=== PATIENT | female | born 1985 | race Caucasian/White ===

== ENCOUNTER 2016-07-22 12:35 | Inpatient (IN) | payer OTHER ==
[2016-07-22 17:18] VITALS: BMI 22.4
--- NOTE | 2016-07-22 18:57 | HP ---
COWS - Scale Resting Pulse: 1= [place] 81-100 Sweatin= Chills/Flushing Restless Observation: 3= Extraneous Movement Pupil Size: 0= Normal to Room Light Bone or Joint Aches: 2= Severe Diffuse Aches Runny Nose/ Eye Tearin= Runny Nose/Eyes GI Upset > 30mins: 3= Vomiting/Diarrhea Tremor Observation: 2= Slight Tremor Visible Yawning Observation: 0= None Anxiety or Irritability: 2=Irritable/Anxious Goose Flesh Skin: 0=Smooth Skin COWS Score: [address] [facility] Chief Complaint: withdrawal sx Allergies/Adverse Reactions: Allergies Allergy/AdvReac Type Severity Reaction Status Date / Time No Known Allergies Allergy Verified 07/25/16 21:51 History of Present Illness: 30 years old female with long history of opioid nicotine dependence, seizure since age 9 and depression is admitted to detox Exam Limitations: No Limitations - Ebola screening Have you traveled outside of the country in the last 21 days: No Have you had contact with anyone from an Ebola affected area: No Have you been sick,other than usual withdrawal symptoms: No Do you have a fever: No - Review of Systems Constitutional: Chills, Loss of Appetite, Changes in sleep, Unintentional Wgt. Loss, Unexplained wgt Loss EENT: reports: No Symptoms Reported Respiratory: reports: No Symptoms reported Cardiac: reports: No Symptoms Reported GI: reports: Nausea, Poor Appetite, Poor Fluid Intake, Vomiting, Indigestion, Abdominal cramping : reports: No Symptoms Reported Musculoskeletal: reports: Back Pain, Joint Pain, Muscle Pain, Neck Pain Integumentary: reports: Change in Color (neck) Neuro: reports: Seizure (since age 9), Tremors Endocrine: reports: No Symptoms Reported Hematology: reports: No Symptoms Reported Psychiatric: reports: Judgement Intact, Orientated x3, Anxious, Depressed Other Systems: Reviewed and Negative Patient History - Patient Medical History Hx Anemia: No Hx Asthma: No Hx Chronic Obstructive Pulmonary Disease (COPD): No Hx Cancer: No Hx Cardiac Disorders: No Hx Congestive Heart Failure: No Hx Hypertension: No Hx Hypercholesterolemia: No Hx Pacemaker: No HX Cerebrovascular Accident: No Hx Seizures: Yes (last seizure 04/2016) Hx Dementia: No Hx Diabetes: No Hx Gastrointestinal Disorders: Yes Hx Liver Disease: No Hx Genitourinary Disorders: No Hx Sexually Transmitted Disorders: No Hx Renal Disease (ESRD): No Hx Thyroid Disease: No Hx Human Immunodeficiency Virus (HIV): No Hx Hepatitis C: No Hx Depression: Yes Hx Suicide Attempt: No Hx Bipolar Disorder: No Hx Schizophrenia: No - Patient Surgical History Past Surgical History: Yes Hx Neurologic Surgery: No Hx Cataract Extraction: No Hx Cardiac Surgery: No Hx Lung Surgery: No Hx Breast Surgery: No Hx Breast Biopsy: No Hx Abdominal Surgery: No Hx Appendectomy: No Hx Cholecystectomy: No Hx Genitourinary Surgery: No Hx Section: Yes (2014) Hx Orthopedic Surgery: No Anesthesia Reaction: No - PPD History Previous Implant?: Yes Documented Results: Negative w/o proof Implanted On Prior R Admission?: No PPD to be Administered?: Yes - Reproductive History Patient is a Female of Child Bearing Age (11 -55 yrs old): Yes Last Menstrual Period: 06/22/16 Patient : No - Smoking Cessation Smoking history: Current every day smoker Have you smoked in the past 12 months: No Aproximately how many cigarettes per day: 10 Cigars Per Day: 0 Hx Chewing Tobacco Use: No Initiated information on smoking cessation: Yes 'Breaking Loose' booklet given: 07/22/16 - Substance & Tx. History Hx Alcohol Use: No Hx Substance Use: Yes Substance Use Type: Opiates Hx Substance Use Treatment: Yes - Substances Abused Heroin Route: Injection Frequency: Daily Amount used: 20 BAGS Age of first use: 29 Date of Last Use: 07/22/16 Family Disease History - Family Disease History Family Disease History: Diabetes: Grandparent, Heart Disease: Mother Admission Physical Exam BHS - Vital Signs Vital Signs: Vital Signs - 24 hr 07/22/16 17:16 Temperature 98.2 F Pulse Rate 85 Respiratory 18 Rate Blood Pressure 111/62 - Physical General Appearance: Yes: Appropriately Dressed, Mild Distress, Thin, Tremorous, Irritable, Sweating, Anxious HEENTM: Yes: Hearing grossly Normal, Normal ENT Inspection, Normocephalic, Normal Voice Respiratory: Yes: Chest Non-Tender, Lungs Clear, Normal Breath Sounds, No Respiratory Distress, No Accessory Muscle Use Neck: Yes: Supple, Trachea in good position Breast: Yes: Breasts Symetrical Cardiology: Yes: Regular Rhythm, Regular Rate, S1, S2 Abdominal: Yes: Non Tender, Soft Genitourinary: Yes: Within Normal Limits Back: Yes: Normal Inspection Musculoskeletal: Yes: full range of Motion, Gait Steady Extremities: Yes: Normal Range of Motion, Non-Tender, Tremors Neurological: Yes: Fully Oriented, Alert, Motor Strength 5/5, Normal Response, Depressed Affect Integumentary: Yes: Warm, Track Duffy Lymphatic: Yes: Within Normal Limits - Diagnostic (1) Opioid dependence with withdrawal Current Visit: Yes Status: Acute (2) Nicotine dependence Current Visit: Yes Status: Acute Qualifiers: Nicotine product type: cigarettes Substance use status: in withdrawal Qualified Code(s): F17.213 - Nicotine dependence, cigarettes, with withdrawal (3) Seizure Current Visit: Yes Status: Chronic Comment: treated with tegretal and keppra last dose 05/2016 last seizure 04/2016 (4) GERD (gastroesophageal reflux disease) Current Visit: Yes Status: Chronic Qualifiers: Esophagitis presence: without esophagitis Qualified Code(s): K21.9 - Gastro-esophageal reflux disease without esophagitis (5) Depression (emotion) Current Visit: Yes Status: Suspected Qualifiers: Depression Type: dysthymia Qualified Code(s): F34.1 - Dysthymic disorder Cleared for Admission [facility] - Detox or Rehab [facility] Level of Care: Medically Managed Detox Regimen/Protocol: Methadone [facility] Breath Alcohol Content Breath Alcohol Content: 0 Urine Pregancy Test - Result Urine Test Results: Negative- NO Line Present Urine Drug Screen - Results Drug Screen Negative: No Urine Drug Screen Results: OPI-Opiates
[2016-07-22] MEDS ORDERED: MAGNESIUM CITRATE 300 ML BOTTLE PO PRN (18:59)
[2016-07-22] MEDS ORDERED: ACETAMINOPHEN 325 MG TABLET (FP) PO PRN (18:59)
[2016-07-22] MEDS ORDERED: guaiFENesin/D-METHORPHAN HB 10 ML UNIT-DOSE CUPS PO PRN (18:59)
[2016-07-22] MEDS ORDERED: LOPERAMIDE HCL 2 MG CAPSULE PO PRN (18:59)
[2016-07-22] MEDS ORDERED: METHADONE HCL 10 MG TABLET (FOR DETOX USE ONLY) PO ONE ×2 (18:59→23:00)
[2016-07-22] MEDS ORDERED: MAGNESIUM HYDROX 2400MG/30ML ORAL SUSPENSION 30 ML CUP PO PRN (18:59)
[2016-07-22] MEDS ORDERED: MENTHOL/PHENOL 1 EACH UD MM PRN (18:59)
[2016-07-22] MEDS ORDERED: diphenhydrAMINE HCL 50 MG CAPSULE PO PRN (18:59)
[2016-07-22] MEDS ORDERED: NICOTINE POLACRILEX 2 MG GUM BC PRN (18:59)
[2016-07-22] MEDS ORDERED: IBUPROFEN 400 MG TABLET (FP) PO PRN (18:59)
[2016-07-22] MEDS ORDERED: P-EPHED 60MG/TRIPROLIDI 2.5MG TABLET PO PRN (18:59)
[2016-07-22] MEDS: diazePAM 5 MG TABLET PO PRN (20:44)
[2016-07-22] MEDS: MAG HYDROX/AL HYDROX/SIMETH 30 ML UNIT-DOSE CUP PO PRN (20:44)
[2016-07-22] MEDS: carBAMazepine 200 MG TABLET PO SCH (22:19)
[2016-07-22] MEDS: RANITIDINE HCL 150 MG TABLET (FP) PO SCH (22:20)
[2016-07-22] MEDS: levETIRAcetam 500 MG TABLET (FP) PO SCH (22:20)
[2016-07-22] MEDS: THIAMINE HCL 100 MG TABLET (FP) PO SCH (22:21)
[2016-07-22 23:02] LABS: URINE APPEARANCE CLOUDY; URINE BILIRUBIN NEGATIVE (NEGATIVE); URINE BLOOD NEGATIVE (NEGATIVE); URINE COLOR YELLOW; URINE GLUCOSE (UA) NEGATIVE (NEGATIVE); URINE KETONE NEGATIVE (NEGATIVE); URINE NITRITE NEGATIVE (NEGATIVE); URINE PROTEIN NEGATIVE (NEGATIVE); URINE UROBILINOGEN NEGATIVE E.U./dl (0.2-1.0)
[2016-07-22 23:06] LABS: URINE LEUK ESTERASE 1+ (NEGATIVE)
[2016-07-22 23:09] LABS: URINE MUCUS FEW; URINE RBC 1 /hpf (0-3); URINE WBC 9 /hpf (3-5)
[2016-07-23] MEDS: diazePAM 5 MG TABLET PO PRN ×5 (00:42→18:23)
[2016-07-23] MEDS: MAG HYDROX/AL HYDROX/SIMETH 30 ML UNIT-DOSE CUP PO PRN ×2 (06:57→22:04)
[2016-07-23] MEDS ORDERED: METHADONE HCL 10 MG TABLET (FOR DETOX USE ONLY) PO ONE (10:00)
[2016-07-23] MEDS: levETIRAcetam 500 MG TABLET (FP) PO SCH ×2 (10:22→22:04)
[2016-07-23] MEDS: PRENATAL VITAMINS W/ FOLIC ACID TABLET (FP) PO SCH (10:22)
[2016-07-23] MEDS: RANITIDINE HCL 150 MG TABLET (FP) PO SCH ×2 (10:23→22:04)
[2016-07-23] MEDS: NICOTINE 14 MG/24 HOURS TOPICAL PATCH TD SCH (10:23)
[2016-07-23 10:27] LABS: MCH 30.1 pg (25.7-33.7); MCHC 33.4 g/dl (32.0-36.0); MEAN CELL VOLUME 90.2 fl (80-96); MEAN PLT VOLUME 9.3 fl (7.5-11.1); PLATELET COUNT 259 K/MM3 (134-434); RDW 14.6 % (11.6-15.6); WHITE BLOOD COUNT 9.4 K/mm3 (4.0-10.0)
[2016-07-23 10:39] LABS: ANION GAP 9 (8-16); BILIRUBIN,TOTAL 0.6 mg/dL (0.2-1.0); CALCIUM 9.1 mg/dL (8.5-10.1); CO2 32 mmol/L (21-32); GLUCOSE,RANDOM 72 mg/dL (74-106); SGOT/AST 14 U/L (15-37); SGPT/ALT 15 U/L (12-78); TOT PROT 7.3 g/dl (6.4-8.2)
[2016-07-23 10:40] LABS: ALK PHOS 105 U/L (45-117); COCKROFT - GAULT 112.5655; CREATININE 0.7 mg/dL (0.55-1.02)
--- NOTE | 2016-07-23 11:33 | PN ---
[facility] COWS - Scale Resting Pulse: 1= [place] 81-100 Sweatin= Chills/Flushing Restless Observation: 3= Extraneous Movement Pupil Size: 1= Pupils >than Normal Bone or Joint Aches: 2= Severe Diffuse Aches Runny Nose/ Eye Tearin= Runny Nose/Eyes GI Upset > 30mins: 3= Vomiting/Diarrhea Tremor Observation of Outstretched Hands: 2= Slight Tremor Visible Yawning Observation: 1= 1-2x During Session Anxiety or Irritability: 2=Irritable/Anxious Goose Flesh Skin: 0=Smooth Skin COWS Score: 18 S Progress Note (SOAP) Subjective: ALERT,IRRITABLE,ANXIOUS,INTERRUPTED SLEEP,TREMOR,PAIN IN THE BODY AND BACK Objective: 07/23/16 11:46 Vital Signs Temperature 97.9 F 07/23/16 10:26 Pulse Rate 95 H 07/23/16 10:26 Respiratory Rate 18 07/23/16 10:26 Blood Pressure 114/59 07/23/16 10:26 O2 Sat by Pulse Oximetry (%) Laboratory Last Values WBC 9.4 K/mm3 (4.0-10.0) 07/23/16 06:05 RBC 4.11 M/mm3 (3.60-5.2) 07/23/16 06:05 Hgb 12.4 GM/dL (10.7-15.3) 07/23/16 06:05 Hct 37.1 % (32.4-45.2) 07/23/16 06:05 MCV 90.2 fl (80-96) 07/23/16 06:05 MCHC 33.4 g/dl (32.0-36.0) 07/23/16 06:05 RDW 14.6 % (11.6-15.6) 07/23/16 06:05 Plt Count 259 K/MM3 (134-434) 07/23/16 06:05 MPV 9.3 fl (7.5-11.1) 07/23/16 06:05 Sodium 140 mmol/L (136-145) 07/23/16 06:05 Potassium 3.4 mmol/L (3.5-5.1) L 07/23/16 06:05 Chloride 99 mmol/L (98-107) 07/23/16 06:05 Carbon Dioxide 32 mmol/L (21-32) 07/23/16 06:05 Anion Gap 9 (8-16) 07/23/16 06:05 BUN 7 mg/dL (7-18) 07/23/16 06:05 Creatinine 0.7 mg/dL (0.55-1.02) 07/23/16 06:05 Creat Clearance w eGFR > 60 (>60) 07/23/16 06:05 Random Glucose 72 mg/dL (74-106) L 07/23/16 06:05 Calcium 9.1 mg/dL (8.5-10.1) 07/23/16 06:05 Total Bilirubin 0.6 mg/dL (0.2-1.0) 07/23/16 06:05 AST 14 U/L (15-37) L 07/23/16 06:05 ALT 15 U/L (12-78) 07/23/16 06:05 Alkaline Phosphatase 105 U/L (45-117) 07/23/16 06:05 Total Protein 7.3 g/dl (6.4-8.2) 07/23/16 06:05 Albumin 4.0 g/dl (3.4-5.0) 07/23/16 06:05 Urine Color Yellow 07/22/16 20:35 Urine Appearance Cloudy 07/22/16 20:35 Urine pH 7.0 (5.0-8.0) 07/22/16 20:35 Urine Protein Negative (NEGATIVE) 07/22/16 20:35 Urine Glucose (UA) Negative (NEGATIVE) 07/22/16 20:35 Urine Ketones Negative (NEGATIVE) 07/22/16 20:35 Urine Blood Negative (NEGATIVE) 07/22/16 20:35 Urine Nitrite Negative (NEGATIVE) 07/22/16 20:35 Urine Bilirubin Negative (NEGATIVE) 07/22/16 20:35 Urine Urobilinogen Negative E.U./dl (0.2-1.0) 07/22/16 20:35 Ur Leukocyte Esterase 1+ (NEGATIVE) H 07/22/16 20:35 Urine RBC 1 /hpf (0-3) 07/22/16 20:35 Urine WBC 9 /hpf (3-5) 07/22/16 20:35 Ur Epithelial Cells Many /hpf (FEW) 07/22/16 20:35 Amorphous Urates Moderate /hpf (NONE SEEN) 07/22/16 20:35 Urine Mucus Few 07/22/16 20:35 Carbamazepine < 0.5 ug/ml (4.0-12.0) L* 07/23/16 06:05 EKG NSR,NORMAL ECG Assessment: 07/23/16 11:47 WITHDRAWAL SYMPTOM Plan: CONTINUE DETOX,K IS 3.4 HYPOKALEMIA KDUR 20 MEQ PO NOW THE DAILY
[2016-07-23] MEDS: carBAMazepine 200 MG TABLET PO SCH ×2 (12:06→22:04)
[2016-07-23] MEDS ORDERED: POTASSIUM CHLORIDE TABS 20 MEQ TABLET.ER (FP) PO ONE (12:30)
[2016-07-23] MEDS: hydrOXYzine PAMOATE 50 MG CAPSULE (FP) PO PRN (14:28)
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
[2016-07-23] MEDS: THIAMINE HCL 100 MG TABLET (FP) PO SCH (22:04)
[2016-07-23] MEDS: traZODone HCL 50 MG TABLET (FP) PO SCH (22:04)
[2016-07-24] MEDS: diazePAM 5 MG TABLET PO PRN ×5 (04:00→22:09)
[2016-07-24] MEDS: hydrOXYzine PAMOATE 50 MG CAPSULE (FP) PO PRN ×2 (06:00→11:43)
[2016-07-24] MEDS ORDERED: METHADONE HCL 5 MG TABLET (FOR DETOX USE ONLY) PO ONE (10:00)
--- NOTE | 2016-07-24 10:06 | PN ---
S COWS - Scale Resting Pulse: 1= [place] 81-100 Sweatin= Chills/Flushing Restless Observation: 3= Extraneous Movement Pupil Size: 1= Pupils >than Normal Bone or Joint Aches: 2= Severe Diffuse Aches Runny Nose/ Eye Tearin= Runny Nose/Eyes GI Upset > 30mins: 2= Nausea/Diarrhea Tremor Observation of Outstretched Hands: 2= Slight Tremor Visible Yawning Observation: 1= 1-2x During Session Anxiety or Irritability: 2=Irritable/Anxious Goose Flesh Skin: 0=Smooth Skin COWS Score: 17 S Progress Note (SOAP) Subjective: ALERT,IRRITABLE,ANXIOUS,INTERRUPTED SLEEP,PAIN IN THE BODY AND BCAK Objective: 07/24/16 10:05 Vital Signs Temperature 97.1 F L 07/24/16 06:26 Pulse Rate 83 07/24/16 06:26 Respiratory Rate 20 07/24/16 06:26 Blood Pressure 95/60 07/24/16 06:26 O2 Sat by Pulse Oximetry (%) Laboratory Last Values WBC 9.4 K/mm3 (4.0-10.0) 07/23/16 06:05 RBC 4.11 M/mm3 (3.60-5.2) 07/23/16 06:05 Hgb 12.4 GM/dL (10.7-15.3) 07/23/16 06:05 Hct 37.1 % (32.4-45.2) 07/23/16 06:05 MCV 90.2 fl (80-96) 07/23/16 06:05 MCHC 33.4 g/dl (32.0-36.0) 07/23/16 06:05 RDW 14.6 % (11.6-15.6) 07/23/16 06:05 Plt Count 259 K/MM3 (134-434) 07/23/16 06:05 MPV 9.3 fl (7.5-11.1) 07/23/16 06:05 Sodium 140 mmol/L (136-145) 07/23/16 06:05 Potassium 3.4 mmol/L (3.5-5.1) L 07/23/16 06:05 Chloride 99 mmol/L (98-107) 07/23/16 06:05 Carbon Dioxide 32 mmol/L (21-32) 07/23/16 06:05 Anion Gap 9 (8-16) 07/23/16 06:05 BUN 7 mg/dL (7-18) 07/23/16 06:05 Creatinine 0.7 mg/dL (0.55-1.02) 07/23/16 06:05 Creat Clearance w eGFR > 60 (>60) 07/23/16 06:05 Random Glucose 72 mg/dL (74-106) L 07/23/16 06:05 Calcium 9.1 mg/dL (8.5-10.1) 07/23/16 06:05 Total Bilirubin 0.6 mg/dL (0.2-1.0) 07/23/16 06:05 AST 14 U/L (15-37) L 07/23/16 06:05 ALT 15 U/L (12-78) 07/23/16 06:05 Alkaline Phosphatase 105 U/L (45-117) 07/23/16 06:05 Total Protein 7.3 g/dl (6.4-8.2) 07/23/16 06:05 Albumin 4.0 g/dl (3.4-5.0) 07/23/16 06:05 Urine Color Yellow 07/22/16 20:35 Urine Appearance Cloudy 07/22/16 20:35 Urine pH 7.0 (5.0-8.0) 07/22/16 20:35 Ur Specific [place] 1.010 (1.005-1.025) 07/22/16 20:35 Urine Protein Negative (NEGATIVE) 07/22/16 20:35 Urine Glucose (UA) Negative (NEGATIVE) 07/22/16 20:35 Urine Ketones Negative (NEGATIVE) 07/22/16 20:35 Urine Blood Negative (NEGATIVE) 07/22/16 20:35 Urine Nitrite Negative (NEGATIVE) 07/22/16 20:35 Urine Bilirubin Negative (NEGATIVE) 07/22/16 20:35 Urine Urobilinogen Negative E.U./dl (0.2-1.0) 07/22/16 20:35 Ur Leukocyte Esterase 1+ (NEGATIVE) H 07/22/16 20:35 Urine RBC 1 /hpf (0-3) 07/22/16 20:35 Urine WBC 9 /hpf (3-5) 07/22/16 20:35 Ur Epithelial Cells Many /hpf (FEW) 07/22/16 20:35 Amorphous Urates Moderate /hpf (NONE SEEN) 07/22/16 20:35 Urine Mucus Few 07/22/16 20:35 Carbamazepine < 0.5 ug/ml (4.0-12.0) L* 07/23/16 06:05 RPR Titer Nonreactive (NONREACTIVE) 07/23/16 06:05 Assessment: 07/24/16 10:05 CONTINUE DETOX,CONTINUE K DUR
[2016-07-24] MEDS: POTASSIUM CHLORIDE TABS 20 MEQ TABLET.ER (FP) PO SCH (10:14)
[2016-07-24] MEDS: levETIRAcetam 500 MG TABLET (FP) PO SCH ×3 (10:14→22:09)
[2016-07-24] MEDS: PRENATAL VITAMINS W/ FOLIC ACID TABLET (FP) PO SCH (10:14)
[2016-07-24] MEDS: carBAMazepine 200 MG TABLET PO SCH ×3 (10:14→22:10)
[2016-07-24] MEDS: RANITIDINE HCL 150 MG TABLET (FP) PO SCH ×2 (10:14→22:09)
[2016-07-24] MEDS: NICOTINE 14 MG/24 HOURS TOPICAL PATCH TD SCH (10:15)
[2016-07-24] MEDS: CYCLOBENZAPRINE HCL 10 MG TABLET (FP) PO PRN ×2 (11:36→22:10)
[2016-07-24] MEDS: traZODone HCL 50 MG TABLET (FP) PO SCH (22:10)
[2016-07-24] MEDS: THIAMINE HCL 100 MG TABLET (FP) PO SCH (22:12)
[2016-07-24] MEDS: cloNIDine HCL 0.1 MG TABLET PO SCH (23:50)
[2016-07-25] MEDS: diazePAM 5 MG TABLET PO PRN ×3 (05:51→15:25)
[2016-07-25] MEDS ORDERED: METHADONE HCL 5 MG TABLET (FOR DETOX USE ONLY) PO ONE (10:00)
[2016-07-25] MEDS: PRENATAL VITAMINS W/ FOLIC ACID TABLET (FP) PO SCH (10:22)
[2016-07-25] MEDS: cloNIDine HCL 0.1 MG TABLET PO SCH ×2 (10:22→22:35)
[2016-07-25] MEDS: POTASSIUM CHLORIDE TABS 20 MEQ TABLET.ER (FP) PO SCH (10:23)
[2016-07-25] MEDS: carBAMazepine 200 MG TABLET PO SCH ×2 (10:23→22:35)
[2016-07-25] MEDS: RANITIDINE HCL 150 MG TABLET (FP) PO SCH ×2 (10:23→22:35)
[2016-07-25] MEDS: levETIRAcetam 500 MG TABLET (FP) PO SCH ×2 (10:25→22:35)
[2016-07-25] MEDS: NICOTINE 14 MG/24 HOURS TOPICAL PATCH TD SCH (10:28)
--- NOTE | 2016-07-25 10:48 | PN ---
[facility] Progress Note (SOAP) Subjective: sweats chills body aches anxiety Objective: 07/25/16 10:48 Vital Signs Temperature 97.9 F 07/25/16 09:35 Pulse Rate 90 07/25/16 09:35 Respiratory Rate 20 07/25/16 09:35 Blood Pressure 101/66 07/25/16 09:35 O2 Sat by Pulse Oximetry (%) awake/alert ambulating no acute distress Assessment: 07/25/16 10:48 withdrawal sx Plan: continue detox increase fluids psych ordered
--- NOTE | 2016-07-25 13:05 | EKG ---
Test Reason : Blood Pressure : / mmHG Vent. Rate : 080 BPM Atrial Rate : 080 BPM P-R Int : 156 ms QRS Dur : 092 ms QT Int : 380 ms P-R-T Axes : 073 059 068 degrees QTc Int : 438 ms NORMAL SINUS RHYTHM NORMAL ECG NO PREVIOUS ECGS AVAILABLE Confirmed by LANDON OH MD ([id number]) on 07/25/2016 1:05:24 PM Referred By: Confirmed By:LANDON OH MD
[2016-07-25] MEDS: hydrOXYzine PAMOATE 50 MG CAPSULE (FP) PO PRN (17:32)
[2016-07-25] MEDS ORDERED: LORAZEPAM CARPU-JECT 2 MG/ML DISP.SYRIN ONE ×2 (20:20→20:24)
[2016-07-25] MEDS ORDERED: LORAZEPAM CARPU-JECT 2 MG/ML DISP.SYRIN IM ONE (20:50)
--- NOTE | 2016-07-25 20:59 | PN ---
[facility] Progress Note Note: SEIZURE TREATED WITH KEPPRA 1000 MG BID + TEGRETAL 200 MG BID, WITNESSED X 5 WITHIN 10-15 MINUTES, ATIVAN 2 MG IM GIVEN, O2 2L VA NASAL O2SAT 99% PULE 93, AMBULANCE WAS CALLED, INFORMATION PROVIDED TO [facility], MAY RETURN FOR DETOX OR REHAB WHEN MEDICALLY CLEARED
[2016-07-25] MEDS: THIAMINE HCL 100 MG TABLET (FP) PO SCH (22:35)
[2016-07-25] MEDS: traZODone HCL 50 MG TABLET (FP) PO SCH (22:35)
[2016-07-26] MEDS ORDERED: METHADONE HCL 10 MG TABLET (FOR DETOX USE ONLY) PO ONE (10:00)
--- NOTE | 2016-07-26 10:31 | PN ---
S Progress Note (SOAP) Subjective: ALERT,MEDICALLY CLEAR TO RETURN FOR CONTINUE DETOX TREATMENT Objective: 07/26/16 10:29 Vital Signs Temperature 96.4 F L 07/25/16 17:39 Pulse Rate 83 07/25/16 17:39 Respiratory Rate 18 07/25/16 17:39 Blood Pressure 107/62 07/25/16 17:39 O2 Sat by Pulse Oximetry (%) Assessment: 07/26/16 10:30 WITHDRAWAL SYMPTOM Plan: CONTINUE DETOX,SEIZURE PRECAUTION
[2016-07-26] MEDS: cloNIDine HCL 0.1 MG TABLET PO SCH ×2 (10:32→22:28)
[2016-07-26] MEDS: PRENATAL VITAMINS W/ FOLIC ACID TABLET (FP) PO SCH (10:59)
[2016-07-26] MEDS: carBAMazepine 200 MG TABLET PO SCH ×2 (10:59→22:28)
[2016-07-26] MEDS: levETIRAcetam 500 MG TABLET (FP) PO SCH ×2 (10:59→22:28)
[2016-07-26] MEDS: RANITIDINE HCL 150 MG TABLET (FP) PO SCH ×2 (10:59→22:28)
[2016-07-26] MEDS: POTASSIUM CHLORIDE TABS 20 MEQ TABLET.ER (FP) PO SCH (10:59)
[2016-07-26] MEDS: NICOTINE 14 MG/24 HOURS TOPICAL PATCH TD SCH (11:00)
[2016-07-26] MEDS: hydrOXYzine PAMOATE 50 MG CAPSULE (FP) PO PRN (19:06)
[2016-07-26] MEDS ORDERED: QUEtiapine FUMARATE 50 MG TABLET PO ONE (19:30)
[2016-07-26] MEDS: THIAMINE HCL 100 MG TABLET (FP) PO SCH (22:28)
[2016-07-26] MEDS: traZODone HCL 50 MG TABLET (FP) PO SCH (22:28)
[2016-07-27] MEDS ORDERED: METHADONE HCL 5 MG TABLET (FOR DETOX USE ONLY) PO ONE (06:00)
[2016-07-27 06:12] VITALS: BP 97/60; PULSE 76; TEMP 97
--- NOTE | 2016-07-27 08:32 | DS ---
[facility] Detox Discharge Summary Admission Date: 07/22/16 Discharge Date: 07/27/16 - History Present History: Opioid Dependence - Physical Exam Results Vital Signs: Vital Signs Temperature 97 F L 07/27/16 06:12 Pulse Rate 76 07/27/16 06:12 Respiratory Rate 16 07/27/16 06:12 Blood Pressure 97/60 07/27/16 06:12 O2 Sat by Pulse Oximetry (%) - Treatment Hospital Course: Detox Protocol Followed, Detoxed Safely, Responded well, Discharged Condition Good, Rehab Referral Accepted - Medication Discharge Medications: Ambulatory Orders Carbamazepine [Tegretol -] 200 mg PO BID 07/22/16 Levetiracetam [Keppra -] 750 mg PO BID 07/22/16 Trazodone HCl [Desyrel -] 50 mg PO HS #30 tablet 07/23/16 - Diagnosis (1) Insomnia Current Visit: Yes Status: Chronic (2) Nicotine dependence Current Visit: Yes Status: Chronic Qualifiers: Nicotine product type: cigarettes Substance use status: uncomplicated Qualified Code(s): F17.210 - Nicotine dependence, cigarettes, uncomplicated (3) Substance induced mood disorder Current Visit: Yes Status: Acute (4) GERD (gastroesophageal reflux disease) Current Visit: Yes Status: Chronic Qualifiers: Esophagitis presence: without esophagitis Qualified Code(s): K21.9 - Gastro-esophageal reflux disease without esophagitis (5) PTSD (post-traumatic stress disorder) Current Visit: Yes Status: Chronic (6) Depression (emotion) Current Visit: Yes Status: Suspected Qualifiers: Depression Type: dysthymia Qualified Code(s): F34.1 - Dysthymic disorder (7) Opioid dependence with withdrawal Current Visit: Yes Status: Chronic (8) Seizure Current Visit: Yes Status: Chronic - AMA Did Patient Leave Against Medical Advice: No
[2016-07-27] MEDS ORDERED: HALOPERIDOL 1 MG TABLET (FP) PO PRN (08:54)
[2016-07-27] MEDS ORDERED: CYCLOBENZAPRINE HCL 10 MG TABLET (FP) PO PRN (08:59)
--- NOTE | 2016-07-27 09:01 | PN ---
Psychiatric Progress Note Vital Signs: Vital Signs Period Temp Pulse Resp BP Sys/Kurtz Pulse Ox Last 24 Hr 97 F-98.6 F 76-119 16-20 95-109/60-71 Date of Session: 07/27/16 Chief Complaint:: Aniety and agitations HPI: Patient reprot anxietyt, agitations after Valium has been ntapers by protocol, reports taking xanax and Klonopin priorm to admission for anxiety. Patient reports need in benzodoazepins for anxiety. Haldol 1mg po prn a4 recomended Current Medications: Active Medications Generic Name Dose Route Start Last Admin Trade Name Freq PRN Reason Stop Dose Admin Acetaminophen 650 mg 07/22/16 18:59 Tylenol - PO Q4H PRN FEVER OR PAIN Al Hydroxide/Mg Hydroxide 30 ml 07/22/16 18:59 07/23/16 22:04 Mylanta Oral Suspension - PO 30 ml Q6H PRN Administration DYSPEPSIA Carbamazepine 200 mg 07/22/16 22:00 07/26/16 22:28 Tegretol - PO 200 mg BID ELIZABETH Administration Clonidine 0.1 mg 07/24/16 22:00 07/26/16 22:28 Catapres - PO 0.1 mg BID ELIZABETH Administration Cyclobenzaprine HCl 10 mg 07/24/16 10:02 07/24/16 22:10 Flexeril - PO 10 mg TID PRN Administration MUSCLE SPASMS Diphenhydramine HCl 50 mg 07/22/16 18:59 07/23/16 00:42 Benadryl - PO 50 mg HSMR1 PRN Administration INSOMNIA Eucalyptus/Menthol/Phenol/Sorbitol 1 each 07/22/16 18:59 Cepastat Lozenge - MM Q4H PRN SORE THROAT Guaifenesin 10 ml 07/22/16 18:59 Robitussin Dm - PO Q6H PRN COUGH Hydroxyzine Pamoate 50 mg 07/23/16 12:39 07/26/16 19:06 Vistaril - PO 50 mg Q6H PRN Administration ANXIETY Levetiracetam 1,000 mg 07/22/16 22:00 07/26/16 22:28 Keppra - PO 1,000 mg BID ELIZABETH Administration Loperamide HCl 4 mg 07/22/16 18:59 Imodium - PO Q6H PRN DIARRHEA Magnesium Citrate 300 ml 07/22/16 18:59 Citroma - PO Q48H PRN CONSTIPATION Magnesium Hydroxide 30 ml 07/22/16 18:59 Milk Of Magnesia - PO DAILY PRN CONSTIPATION Nicotine 14 mg 07/23/16 10:00 07/26/16 11:00 Nicoderm Patch - TD Not Given DAILY ELIZABETH Nicotine Polacrilex 2 mg 07/22/16 18:59 Nicorette Gum - BC Q2H PRN NICOTINE REPLACEMENT RX Potassium Chloride 20 meq 07/24/16 10:00 07/26/16 10:59 K-Dur - PO 20 meq DAILY ELIZABETH Administration Multivit/Folic Acid/Iron 1 tab 07/23/16 10:00 07/26/16 10:59 Vitamins (Sjr) - PO 1 tab DAILY ELIZABETH Administration Pseudoephedrine/Triprolidine 1 combo 07/22/16 18:59 Actifed - PO TID PRN NASAL CONGESTION Ranitidine HCl 150 mg 07/22/16 22:00 07/26/16 22:28 Zantac - PO 150 mg BID ELIZABETH Administration Thiamine HCl 100 mg 07/22/16 22:00 07/26/16 22:28 Vitamin B1 - PO 100 mg HS ELIZABETH Administration Trazodone HCl 50 mg 07/23/16 22:00 07/26/16 22:28 Desyrel - PO 50 mg HS ELIZABETH Administration Medication(s) Change(s): Haldol 1mg po prn q4 for agitation Mental Status Exam - Mental Status Exam Alert and Oriented to: Person Cognitive Function: Fair Patient Appearance: Unkempt Mood: Nervous, Anxious Affect: Labile Patient Behavior: Cooperative Speech Pattern: Excessive Voice Loudness: Mildly Loud Thought Process: Goal Oriented Thought Disorder: Being Controlled Hallucinations: Denies Suicidal Ideation: Denies Homicidal Ideation: Denies Insight/Judgement: Fair Sleep: Difficulty falling asleep Appetite: Weight loss Muscle strength/Tone: Normal Gait/Station: Normal Additional Comments: Haldol 1mg po prn q4 for agitation Psychiatric Treatment Plan - Problem List (1) Substance induced mood disorder Current Visit: Yes (2) Nicotine dependence Current Visit: Yes Qualifiers: Nicotine product type: cigarettes Substance use status: uncomplicated Qualified Code(s): F17.210 - Nicotine dependence, cigarettes, uncomplicated (3) Opioid dependence with withdrawal Current Visit: Yes (4) PTSD (post-traumatic stress disorder) Current Visit: Yes Comment: Self-report. (5) Depression (emotion) Current Visit: Yes Qualifiers: Depression Type: dysthymia Qualified Code(s): F34.1 - Dysthymic disorder (6) Benzodiazepine abuse Current Visit: Yes (7) Drug-induced mood disorder Current Visit: Yes Initial treatment plan: Haldol 1mg po prn q4 for agitation
[2016-07-27] MEDS: levETIRAcetam 500 MG TABLET (FP) PO SCH (10:32)
[2016-07-27] MEDS: PRENATAL VITAMINS W/ FOLIC ACID TABLET (FP) PO SCH (10:32)
[2016-07-27] MEDS: POTASSIUM CHLORIDE TABS 20 MEQ TABLET.ER (FP) PO SCH (10:33)
[2016-07-27] MEDS: RANITIDINE HCL 150 MG TABLET (FP) PO SCH (10:33)
[2016-07-27] MEDS: carBAMazepine 200 MG TABLET PO SCH (10:33)
[2016-07-27] MEDS: NICOTINE 14 MG/24 HOURS TOPICAL PATCH TD SCH (10:33)
[2016-07-27] MEDS: cloNIDine HCL 0.1 MG TABLET PO SCH (10:33)
[2016-07-27] MEDS: hydrOXYzine PAMOATE 50 MG CAPSULE (FP) PO PRN (10:35)
== END 2016-07-27 12:05 | disposition other institution (70) | DRG 773 ==
LOC: YASAS 12:35 → Y6N 17:47
PROVIDERS: ADMIT Internal Medicine Addiction Medicine; ATTEND Internal Medicine Addiction Medicine
PROC: HZ2ZZZZ Detoxification Services for Substance Abuse Treatment (ICD-10-PCS; principal; 2016-07-27)
DX: F11.23 Opioid dependence with withdrawal (principal); F17.210 Nicotine dependence, cigarettes, uncomplicated; F13.10 Sedative, hypnotic or anxiolytic abuse, uncomplicated; F19.24 Other psychoactive substance dependence with psychoactive substance-induced mood disorder; F34.1 Dysthymic disorder; F43.10 Post-traumatic stress disorder, unspecified; G40.909 Epilepsy, unspecified, not intractable, without status epilepticus; K21.9 Gastro-esophageal reflux disease without esophagitis
CPT/HCPCS: 36415; 80053; 80156; 81003; 81015; 85027; 86593; 93005; 93010

== ENCOUNTER 2016-07-25 21:11 | Emergency (ER) | payer OTHER ==
--- NOTE | 2016-07-25 21:13 | PDOC ---
History of Present Illness - General History Source: EMS, Primary Care Provider Exam Limitations: Clinical Condition - History of Present Illness Initial Comments: 07/25/16 21:58 The patient is a 30 year old female with significant past medical history of opioid nicotine dependence and seizure disorder who presents to the ED BIBA from [facility] for multiple witnessed seizure episodes prior to arrival. As per detox center, patient had 5 seizure episodes within 10-15 minutes and was treated with keppra 1000 mg BID + tegretol 200 mg BID and 2 of ativan. EMS was contacted. As per EMS, patient had another seizure and was given versed 5mg IM and then versed 5mg IV. EMS also reports patients keppra levels were low. Patient currently presents postictal and maintaining airway Allergies: NKDA Social History: No alcohol, tobacco, or drug use reported. Past Surgical History: PCP: None reported <Audra Lawson - Last Filed: 07/26/16 06:36> - General History Source: EMS <Trevor Pollack - Last Filed: 07/26/16 06:56> - General Stated Complaint: SEIZURE Time Seen by Provider: 07/25/16 21:13 Past History <uAdra Lawson - Last Filed: 07/26/16 06:36> - Past Medical History Anemia: No Asthma: No Cancer: No Cardiac Disorders: No CVA: No COPD: No CHF: No Dementia: No Diabetes: No GI Disorders: Yes Disorders: No HTN: No Hypercholesterolemia: No Kidney Stones: No Liver Disease: No Suicide Attempt (Hx): No Seizures: Yes (last seizure 04/2016) Thyroid Disease: No - Surgical History Abdominal Surgery: No Appendectomy: No Cardiac Surgery: No Cholecystectomy: No Lung Surgery: No Neurologic Surgery: No Orthopedic Surgery: No - Psycho/Social/Smoking Cessation Hx Anxiety: Yes Suicidal Ideation: No Smoking History: Current every day smoker Have you smoked in the past 12 months: No Number of Cigarettes Smoked Daily: 10 Cigars Per Day: 0 'Breaking Loose' booklet given: 07/22/16 Hx Alcohol Use: No Drug/Substance Use Hx: Yes Substance Use Type: Opiates Hx Substance Use Treatment: Yes <Trevor Pollack - Last Filed: 07/26/16 06:56> - Past Medical History Allergies/Adverse Reactions: Allergies Allergy/AdvReac Type Severity Reaction Status Date / Time No Known Allergies Allergy Verified 07/25/16 21:51 Home Medications: Ambulatory Orders Carbamazepine [Tegretol -] 200 mg PO BID 07/22/16 Levetiracetam [Keppra -] 750 mg PO BID 07/22/16 Trazodone HCl [Desyrel -] 50 mg PO HS #30 tablet 07/23/16 Review of Systems - Review of Systems Able to Perform ROS?: No Comments:: 07/25/16 21:58 Unable to obtain due to patients clinical condition. <Audra Lawson - Last Filed: 07/26/16 06:36> *Physical Exam - Vital Signs Last Vital Signs Temp Pulse Resp BP Pulse Ox 98.1 F 92 H 14 96/58 100 07/25/16 21:52 07/25/16 21:52 07/25/16 21:52 07/25/16 21:52 07/25/16 21:52 - Physical Exam Comments: 07/25/16 21:58 GENERAL: Well developed, well nourished. Somnolent. Postictal. No acute distress. HEENT: Normocephalic, atraumatic. No racoon or pardo signs. PERRLA, EOMI. No conjunctival pallor. Sclera are non-icteric. Moist mucous membranes. Oropharynx is clear. No tongue lesions. NECK: Supple. Full ROM. No JVD. Carotid pulses 2+ and symmetric, without bruits. No thyromegaly. No lymphadenopathy. CARDIOVASCULAR: Slight tachycardia. Regular rhythm. No murmurs, rubs, or gallops. Distal pulses are 2+ and symmetric. PULMONARY: No evidence of respiratory distress. Lungs clear to auscultation bilaterally. No wheezing, rales or rhonchi. ABDOMINAL: Soft. Non-distended. No rebound or guarding. No organomegaly. Normoactive bowel sounds. MUSCULOSKELETAL No bony deformities. EXTREMITIES: No cyanosis. No clubbing. No edema. SKIN: Warm and dry. Normal capillary refill. No rashes. No jaundice. NEUROLOGICAL: Patient is somnolent and postictal. <Audra Lawson - Last Filed: 07/26/16 06:36> ED Treatment Course - LABORATORY CBC & Chemistry Diagram: 07/25/16 22:12 07/25/16 22:12 - RADIOLOGY Radiograph Interpretation: 07/26/16 06:36 EXAM: CT brain without contrast Reviewed by Imaging solutions engineer: FINDINGS: Normal brain. No acute intracranial abnormality. No hemorrhage. No visible infarct or mass. Osseous structures are intact. <Audra Lawson - Last Filed: 07/26/16 06:36> - LABORATORY CBC & Chemistry Diagram: 07/25/16 22:12 07/25/16 22:12 <Trevor Pollack - Last Filed: 07/26/16 06:56> Medical Decision Making - Medical Decision Making 07/26/16 06:55 Dr. Pollack: The scribe's documentation has been prepared under my direction and personally reviewed by me in its entirery. I confirm that the note above accurately reflects all work, treatment, procedures, and medical decision making performed by me. Pt head CT scan is negative. Pt stopped seizing. Pt to return to [facility] today. <Trevor Pollack - Last Filed: 07/26/16 06:56> *DC/Admit/Observation/Transfer - Attestations Scribe Attestion: 07/25/16 21:58 Documentation prepared by Audra Lawson, acting as medical pathology teacher for Trevor Pollack MD/. <Audra Lawson - Last Filed: 07/26/16 06:36> - Discharge Dispostion Admit: No <Trevor Pollack - Last Filed: 07/26/16 06:56> Diagnosis at time of Disposition: Seizure, Opioid dependence with withdrawal - Discharge Dispostion Disposition: I.P. ALCOHOL/SUBS ABUSE REHAB Condition at time of disposition: Stable - Patient Instructions Printed Discharge Instructions: DI for Seizure Disorder -- Adult Additional Instructions: Pt has not receive any Methadone here in the department. She needs to get Methdone today. Spoke to ROBERT Kinsey. She is aware.
[2016-07-25] MEDS ORDERED: levETIRAcetam 500 MG/5 ML INJECTION VIAL IVPB ONE ×3 (21:15→21:35)
[2016-07-25 21:54] VITALS: BMI 19.8
[2016-07-25 22:23] LABS: BASOPHIL 0.7 % (0-2.0); EOSINOPHIL 3.2 % (0-4.5); MCH 29.1 pg (25.7-33.7); MCHC 32.4 g/dl (32.0-36.0); MEAN CELL VOLUME 89.9 fl (80-96); MEAN PLT VOLUME 8.7 fl (7.5-11.1); NEUTROPHILS 47.6 % (42.8-82.8); PLATELET COUNT 230 K/MM3 (134-434); RDW 14.9 % (11.6-15.6); WHITE BLOOD COUNT 6.5 K/mm3 (4.0-10.0)
[2016-07-25 22:35] LABS: INR 1.03 (0.82-1.09); PROTHROMBIN TIME (PATIENT) 11.3 SEC (9.98-11.88)
[2016-07-25 22:43] LABS: ACETONE SERUM NEGATIVE (NEGATIVE)
[2016-07-25 22:46] LABS: ALBUMIN 3.2 g/dl (3.4-5.0); ALK PHOS 104 U/L (45-117); ANION GAP 6 (8-16); BILIRUBIN,TOTAL 0.1 mg/dL (0.2-1.0); CALCIUM 8.5 mg/dL (8.5-10.1); CO2 32 mmol/L (21-32); CREATININE 0.8 mg/dL (0.55-1.02); GLUCOSE,RANDOM 99 mg/dL (74-106); MAGNESIUM 2.2 mg/dL (1.8-2.4); SGOT/AST 13 U/L (15-37); SGPT/ALT 18 U/L (12-78); TOT PROT 6.3 g/dl (6.4-8.2)
[2016-07-26] MEDS ORDERED: LORAZEPAM CARPU-JECT 2 MG/ML DISP.SYRIN IVPUSH ONE ×4 (04:58→06:59)
[2016-07-26] MEDS ORDERED: LORAZEPAM CARPU-JECT 2 MG/ML DISP.SYRIN ONE ×3 (05:00→07:02)
[2016-07-26] MEDS ORDERED: carBAMazepine 200 MG TABLET PO ONE (05:42)
[2016-07-26] MEDS ORDERED: carBAMazepine 200 MG TABLET ONE (05:53)
[2016-07-26 09:45] VITALS: BP 119/59; PULSE 92; TEMP 98.1
== END 2016-07-26 09:40 | disposition other institution (70) ==
LOC: JER 21:11
PROC: 3E033NZ Introduction of Analgesics, Hypnotics, Sedatives into Peripheral Vein, Percutaneous Approach (ICD-10-PCS; principal; 2016-07-25)
PROC: 3E033GC Introduction of Other Therapeutic Substance into Peripheral Vein, Percutaneous Approach (ICD-10-PCS; 2016-07-25)
DX: G40.909 Epilepsy, unspecified, not intractable, without status epilepticus (principal); F11.23 Opioid dependence with withdrawal; F17.210 Nicotine dependence, cigarettes, uncomplicated
CPT/HCPCS: 36415; 70450-TC; 80053; 80307; 82009; 83735; 84703; 85025; 85610; 96374; 96375; 96376; 99282-25

== ENCOUNTER 2016-07-27 12:08 | Inpatient (IN) | payer OTHER ==
[2016-07-27 12:39] VITALS: BP 90/62; PULSE 100; TEMP 97.8
[2016-07-27 12:44] VITALS: BMI 22.8
[2016-07-27] MEDS ORDERED: ACETAMINOPHEN 325 MG TABLET (FP) PO PRN (13:02)
[2016-07-27] MEDS ORDERED: hydrOXYzine PAMOATE 25 MG CAPSULE (FP) PO PRN (13:02)
[2016-07-27] MEDS ORDERED: MENTHOL/PHENOL 1 EACH UD MM PRN (13:02)
[2016-07-27] MEDS ORDERED: IBUPROFEN 400 MG TABLET (FP) PO PRN (13:02)
[2016-07-27] MEDS ORDERED: P-EPHED 60MG/TRIPROLIDI 2.5MG TABLET PO PRN (13:02)
[2016-07-27] MEDS ORDERED: NICOTINE POLACRILEX 2 MG GUM BUC PRN (13:02)
[2016-07-27] MEDS ORDERED: LOPERAMIDE HCL 2 MG CAPSULE PO PRN (13:02)
[2016-07-27] MEDS ORDERED: MAG HYDROX/AL HYDROX/SIMETH 30 ML UNIT-DOSE CUP PO PRN (13:02)
[2016-07-27] MEDS ORDERED: MAGNESIUM CITRATE 300 ML BOTTLE PO PRN (13:02)
[2016-07-27] MEDS ORDERED: guaiFENesin/D-METHORPHAN HB 10 ML UNIT-DOSE CUPS PO PRN (13:02)
[2016-07-27] MEDS ORDERED: MAGNESIUM HYDROX 2400MG/30ML ORAL SUSPENSION 30 ML CUP PO PRN (13:02)
[2016-07-27] MEDS ORDERED: diphenhydrAMINE HCL 50 MG CAPSULE PO PRN (13:02)
[2016-07-27] MEDS ORDERED: CYCLOBENZAPRINE HCL 10 MG TABLET (FP) PO PRN (13:07)
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
[2016-07-27] MEDS ORDERED: QUEtiapine FUMARATE 25 MG TABLET (FP) PO SCH ×2 (14:00→18:00)
--- NOTE | 2016-07-27 16:29 | HP ---
[facility] Rehab Assess/Revision - Admission History Admitted to Rehab from: [facility] Date of Admission to Rehab: 07/27/16 - Vital signs Vital Signs: Vital Signs Period Temp Pulse Resp BP Sys/Kurtz Pulse Ox Last 24 Hr 97.8 F-97.8 F 100-100 18-18 90-90/62-62 - Findings Detox History & Physical reviewed: Yes Concur with findings: Yes Comments/Additional Findings: transferred from detox to rehab admission as per protocol
[2016-07-27] MEDS ORDERED: LORAZEPAM CARPU-JECT 2 MG/ML DISP.SYRIN ONE (17:52)
--- NOTE | 2016-07-27 18:14 | PN ---
[id number] vital signs bp98/64 ap104 o2sat 98%, o2 2L via nasal [facility] WAS CALLED INFORMATION PROVIDED TO ER
[2016-07-27] MEDS ORDERED: LORAZEPAM CARPU-JECT 2 MG/ML DISP.SYRIN IM ONE (18:30)
[2016-07-27] MEDS ORDERED: QUEtiapine FUMARATE 50 MG TABLET PO SCH (22:00)
[2016-07-27] MEDS ORDERED: levETIRAcetam 500 MG TABLET (FP) PO SCH (22:00)
[2016-07-27] MEDS ORDERED: cloNIDine HCL 0.1 MG TABLET PO SCH (22:00)
[2016-07-27] MEDS ORDERED: traZODone HCL 50 MG TABLET (FP) PO SCH (22:00)
[2016-07-27] MEDS ORDERED: THIAMINE HCL 100 MG TABLET (FP) PO SCH (22:00)
[2016-07-27] MEDS ORDERED: carBAMazepine 200 MG TABLET PO SCH ×2 (22:00)
[2016-07-27] MEDS ORDERED: RANITIDINE HCL 150 MG TABLET (FP) PO SCH (22:00)
[2016-07-28] MEDS ORDERED: PRENATAL VITAMINS W/ FOLIC ACID TABLET (FP) PO SCH (10:00)
[2016-07-28] MEDS ORDERED: NICOTINE 14 MG/24 HOURS TOPICAL PATCH TD SCH (10:00)
== END 2016-07-27 23:20 | disposition hospice, inpatient (51) | DRG 772 ==
LOC: YASAS 12:08 → Y3E 12:10
PROVIDERS: ADMIT Psychiatry & Neurology Psychiatry; ATTEND Psychiatry & Neurology Psychiatry
PROC: HZ42ZZZ Group Counseling for Substance Abuse Treatment, Cognitive-Behavioral (ICD-10-PCS; principal; 2016-07-27)
DX: F11.23 Opioid dependence with withdrawal (principal); F17.210 Nicotine dependence, cigarettes, uncomplicated; F19.24 Other psychoactive substance dependence with psychoactive substance-induced mood disorder; F43.10 Post-traumatic stress disorder, unspecified; K21.9 Gastro-esophageal reflux disease without esophagitis; Z59.0 Homelessness

== ENCOUNTER 2016-07-27 18:54 | Inpatient (IN) | payer OTHER ==
[2016-07-27 19:12] VITALS: BMI 23.3
[2016-07-27] MEDS ORDERED: MIDAZOLAM HCL 5 MG/1 ML Single Dose Vial IVPUSH ONE (19:38)
[2016-07-27] MEDS ORDERED: LORAZEPAM CARPU-JECT 2 MG/ML DISP.SYRIN ONE ×3 (19:41→22:04)
[2016-07-27] MEDS ORDERED: levETIRAcetam 500 MG/5 ML INJECTION VIAL IVPB ONE ×2 (19:41→19:59)
[2016-07-27] MEDS ORDERED: LORAZEPAM CARPU-JECT 2 MG/ML DISP.SYRIN IVPUSH ONE ×4 (19:59→23:58)
[2016-07-27 20:03] LABS: BASOPHIL 0.5 % (0-2.0); EOSINOPHIL 2.3 % (0-4.5); MCH 29.6 pg (25.7-33.7); MCHC 33.1 g/dl (32.0-36.0); MEAN CELL VOLUME 89.3 fl (80-96); MEAN PLT VOLUME 8.7 fl (7.5-11.1); NEUTROPHILS 60.1 % (42.8-82.8); PLATELET COUNT 265 K/MM3 (134-434); RDW 15.2 % (11.6-15.6); WHITE BLOOD COUNT 7.7 K/mm3 (4.0-10.0)
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
--- NOTE | 2016-07-27 20:21 | PDOC ---
*Physical Exam - Vital Signs Last Vital Signs Temp Pulse Resp BP Pulse Ox 113 H 18 108/64 100 07/27/16 18:54 07/27/16 18:54 07/27/16 18:54 07/27/16 18:54 ED Treatment Course - LABORATORY CBC & Chemistry Diagram: 07/27/16 19:51 07/27/16 20:43 - ADDITIONAL ORDERS Additional order review: Laboratory Results 07/27/16 19:51 Serum , Qual Negative 07/27/16 19:51 RBC 4.49 MCV 89.3 MCHC 33.1 RDW 15.2 MPV 8.7 Neutrophils % 60.1 D Lymphocytes % 29.3 D Monocytes % 7.8 Eosinophils % 2.3 Basophils % 0.5 - Medications Given in the ED: ED Medications Discontinued Medications Generic Name Dose Route Start Last Admin Trade Name Freq PRN Reason Stop Dose Admin Levetiracetam 1,000 mg 07/27/16 19:59 07/27/16 19:49 Keppra Injection - IVPB 07/27/16 20:00 1,000 mg ONCE ONE Administration Lorazepam 2 mg 07/27/16 19:59 07/27/16 19:48 Ativan Injection - IVPUSH 07/27/16 20:00 2 mg ONCE ONE Administration Midazolam HCl 5 mg 07/27/16 19:38 07/27/16 20:01 Versed - IVPUSH 07/27/16 19:39 Not Given ONCE ONE Medical Decision Making - Medical Decision Making 07/27/16 20:21 agree with care from HEALTH SUPPORT SPECIALIST Dania 07/27/16 23:02 Pt seen two days ago for seizures. Pt continue seizing. Pt to be admitted *DC/Admit/Observation/Transfer Diagnosis at time of Disposition: Opioid dependence with withdrawal, Seizure
[2016-07-27 21:30] LABS: ALBUMIN 3.5 g/dl (3.4-5.0); ALK PHOS 123 U/L (45-117); ANION GAP 6 (8-16); BILIRUBIN,TOTAL 0.1 mg/dL (0.2-1.0); CALCIUM 9.1 mg/dL (8.5-10.1); CO2 32 mmol/L (21-32); COCKROFT - GAULT 102.1445; CREATININE 0.8 mg/dL (0.55-1.02); GLUCOSE,RANDOM 104 mg/dL (74-106); SGOT/AST 22 U/L (15-37); SGPT/ALT 22 U/L (12-78); TOT PROT 7.1 g/dl (6.4-8.2)
--- NOTE | 2016-07-27 22:16 | PN ---
<Ambreen Mckinney - Last Filed: 07/27/16 22:16> Teaching Attending Note Name of Resident: Hetal Michelle <Diana Marley - Last Filed: 08/10/16 21:00> Teaching Attending Note ATTENDING PHYSICIAN STATEMENT I saw and evaluated the patient. I reviewed the resident's note and discussed the case with the resident. I agree with the resident's findings and plan as documented. SUBJECTIVE: 30 yo F with PMHx of opioid and nicotine dependence with seizure disorder from [facility] who presents with multiple witnessed seizure episodes. Patient states she seizes when she undergoes Detox. Patient notes she has been taking various doses of Methadone during her Detox program and attributes her seizures to these changes. Patient also notes she is noncompliant with her Keppra. OBJECTIVE: Last Vital Signs Temp Pulse Resp BP Pulse Ox 85 16 97/61 98 07/27/16 23:35 07/27/16 23:35 07/27/16 23:35 07/27/16 23:35 GENERAL: Awake, alert, and fully oriented, in no acute distress HEENT: Atraumatic. PERRLA, EOMI. Moist mucosa. No JVD. No tongue laceration. + Dry oral mucosa. LUNGS: No distress, speaks full sentences, clear to auscultation bilaterally HEART: Regular rate and rhythm, normal S1 and S2, no murmurs, rubs or gallops, peripheral pulses normal and equal bilaterally. ABDOMEN: Soft, nontender, normoactive bowel sounds. No guarding, no rebound. No masses EXTREMITIES: Normal inspection, Normal range of motion, no edema. No clubbing or cyanosis. NEUROLOGICAL: Cranial nerves II through XII grossly intact. Normal speech, gait deferred. No focal sensorimotor deficits SKIN: Warm, Dry, normal turgor, no rashes or lesions noted. CBCD WBC 7.7 K/mm3 (4.0-10.0) 07/27/16 19:51 RBC 4.49 M/mm3 (3.60-5.2) 07/27/16 19:51 Hgb 13.3 GM/dL (10.7-15.3) D 07/27/16 19:51 Hct 40.1 % (32.4-45.2) 07/27/16 19:51 MCV 89.3 fl (80-96) 07/27/16 19:51 MCHC 33.1 g/dl (32.0-36.0) 07/27/16 19:51 RDW 15.2 % (11.6-15.6) 07/27/16 19:51 Plt Count 265 K/MM3 (134-434) 07/27/16 19:51 MPV 8.7 fl (7.5-11.1) 07/27/16 19:51 CMP Sodium 140 mmol/L (136-145) 07/27/16 20:43 Potassium 4.6 mmol/L (3.5-5.1) 07/27/16 20:43 Chloride 102 mmol/L (98-107) 07/27/16 20:43 Carbon Dioxide 32 mmol/L (21-32) 07/27/16 20:43 Anion Gap 6 (8-16) L 07/27/16 20:43 BUN 14 mg/dL (7-18) D 07/27/16 20:43 Creatinine 0.8 mg/dL (0.55-1.02) 07/27/16 20:43 Creat Clearance w eGFR > 60 (>60) 07/27/16 20:43 Calcium 9.1 mg/dL (8.5-10.1) 07/27/16 20:43 Total Bilirubin 0.1 mg/dL (0.2-1.0) L 07/27/16 20:43 AST 22 U/L (15-37) D 07/27/16 20:43 ALT 22 U/L (12-78) D 07/27/16 20:43 Alkaline Phosphatase 123 U/L (45-117) H 07/27/16 20:43 Total Protein 7.1 g/dl (6.4-8.2) 07/27/16 20:43 Albumin 3.5 g/dl (3.4-5.0) 07/27/16 20:43 ASSESSMENT AND PLAN: 1.Seizures r/o pseudoseizures Continue keppra and ativan for breakthrough seizures Neuro consult Follow keppra levels 2.Nicotine dependence Nicotine patch 3. Opioid dependence Methadone 10 mg TID Rehab consult with Dr. Ananth Pfeiffer in AM Continue home medications Witnessed patient with tonic clonic movement after evaluation. Patient felt like she was going to have a seizure while she has having tonic movement. Documentation prepared by Diana Donell, acting as medical center representative for Ambreen Mckinney MD
[2016-07-27] MEDS ORDERED: METHADONE HCL 10 MG TABLET PO ONE (23:04)
[2016-07-27] MEDS ORDERED: METHADONE HCL 10 MG TABLET ONE (23:42)
--- NOTE | 2016-07-28 00:05 | HP ---
CHIEF COMPLAINT: "im having withdrawal seizures" PCP: none Last saw neurologist 2 mo ago at [facility]rology group at [facility] and had meds adjusted HISTORY OF PRESENT ILLNESS: Patient is a 30 yo F with PMH of SZ d/o since 9 yo( no head trauma), GERD, IV heroindependance x 1 yr and SI attempt by hanging Feb 2016, who is BIBEMS from [facility] due to several witnessed episodes of tonic clonic SZ lasting <1min each followed by brief post ictal state. Patient was in this ED 2 d ago for the same issue. She has several similar SZ eps in ED and was given 1 gm keppra, 8 mg ativan total and versed 5. Patient states that her SZ are exacerbated by opiate withdrawal. She has a prodrome of tingling in feet and metallic taste in mouth and her SZ are sometimes associated with bladder/bowel incontinence. She saw her neurologist 2 mo ago and he increased her keppra due to low levels. she has been forgetting to take her meds lately due to being under influence. She currently complains of hiffuse h/a, blurry vision and mild photophobia. she denies chest pain, cough, sob or abd pain. She reports diarrhea associated with withdrawal but denies melena or hemoatochezia. She reports dysuria x 2 d and suspects UTI. She last used H 1 w ago and intends to compete rehab. She consents to HIV testing. She currently denies depression, si, hi. ER course was notable for: (1)labs (2)ekg (3)1 gm keppra, 8 mg ativan total and versed 5 Recent Travel: denies PAST MEDICAL HISTORY: as above PAST SURGICAL HISTORY: 5 c sections, tubes tied Social History: homeless, lives with various friends Smoking: a few cigs when shooting H Alcohol: one drink/mo Drugs: heroic IV, last week tried crack Family History: SZ d/o in uncle Allergies No Known Allergies Allergy (Verified 07/27/16 19:12) HOME MEDICATIONS: Home Medications Medication Instructions Recorded Carbamazepine [Tegretol -] 200 mg PO BID 07/22/16 Levetiracetam [Keppra -] 100 mg PO BID 07/22/16 Trazodone HCl [Desyrel -] 50 mg PO HS #30 tablet 07/23/16 Haloperidol [Haldol -] 1 mg PO Q4HWA PRN 07/27/16 Ranitidine HCl [Zantac] 150 mg PO BID 07/27/16 REVIEW OF SYSTEMS CONSTITUTIONAL: Absent: fever HEENT: Absent: rhinorrhea, nasal congestion, throat pain CARDIOVASCULAR: Absent: chest pain, syncope, palpitations, irregular heart rate, lightheadedness , peripheral edema RESPIRATORY: Absent: cough, shortness of breath GASTROINTESTINAL: Absent: abdominal pain, abdominal distension, constipation, melena, hematochezia GENITOURINARY: Absent: flank pain MUSCULOSKELETAL: Absent: back pain, neck pain SKIN: Absent: rash, itching, pallor HEMATOLOGIC/IMMUNOLOGIC: Absent: frequent infections ENDOCRINE: Absent: unexplained weight gain, unexplained weight loss, heat intolerance, cold intolerance NEUROLOGIC: Absent: headache, focal weakness or paresthesias, dizziness, unsteady gait, mental status changes, bladder or bowel incontinence PSYCHIATRIC: Absent: anxiety, depression, suicidal or homicidal ideation, hallucinations. PHYSICAL EXAMINATION Vital Signs - 24 hr 07/27/16 23:35 Pulse Rate [ 85 Radial] Respiratory 16 Rate Blood Pressure 97/61 [Arm] O2 Sat by Pulse 98 Oximetry (%) GENERAL: Awake, alert, and fully oriented, in no acute distress. HEAD: Normal with no signs of trauma. EYES: Pupils equal, round and reactive to light, extraocular movements intact, sclera anicteric, conjunctiva clear. No lid lag. + hor nystagmus EARS, NOSE, THROAT: Moist mucous membranes. NECK: supple without JVD, track yan on R lat neck. LUNGS: Breath sounds equal, clear to auscultation bilaterally. HEART: Regular rate and rhythm, normal S1 and S2 ABDOMEN: Soft, nontender, not distended, normoactive bowel sounds MUSCULOSKELETAL: No CVA tenderness. UPPER EXTREMITIES: 2+ pulses, warm, well-perfused. No cyanosis. No clubbing. No peripheral edema. LOWER EXTREMITIES: 2+ pulses, warm, well-perfused. No calf tenderness. No peripheral edema. NEUROLOGICAL: Cranial nerves II-XII intact. Normal speech. Normal gait. 5/5 strength, 1+ reflexes b/l PSYCHIATRIC: Cooperative. Good eye contact. Appropriate mood and affect. SKIN: Warm, dry ASSESSMENT/PLAN: Patient is a 30 yo F with PMH of SZ d/o since 9 yo( no head trauma), GERD, IV heroindependance x 1 yr and SI attempt by hanging Feb 2016, who is BIBEMS from [facility] due to several witnessed episodes of tonic clonic SZ lasting <1min each followed by brief post ictal state. Seizure d/o uncontrolled -likely exacerbated due to med noncompliance vs opiate withdrawal -restart home meds: -carbamazepine 200 bid -states home dose is Keppra 1400 TID, which is unusual. will start max allowed dose 1500 bid and will call her pharmacy -Trazoldone 50 HS -Hold haldol 1 q4h -call neurology group and confirm meds -keppra level -prolactin level -explore secondary causes u tox, UA, TFTs -NS @75 prevent possible complications such as lactic acidosis or kidney injury due to rhabdo if continue seizing IV heroin dependance -methadone 10 mg po daily -Dr romero consult -plan to continue with rehab on d/c -consented to HIV test Possible UTI -no leukocytosis or fever but complains of dysuria -UA, U culture -reports to be monogamous FEN NS@75 lytes stable regular diet SCD, zantac Dispo: admit tele Problem List - Problem (1) GERD (gastroesophageal reflux disease) Code(s): K21.9 - GASTRO-ESOPHAGEAL REFLUX DISEASE WITHOUT ESOPHAGITIS Qualifiers: (2) Nicotine dependence Code(s): F17.200 - NICOTINE DEPENDENCE, UNSPECIFIED, UNCOMPLICATED Qualifiers : (3) Opioid dependence with withdrawal Code(s): F11.23 - OPIOID DEPENDENCE WITH WITHDRAWAL (4) Seizure Code(s): R56.9 - UNSPECIFIED CONVULSIONS (5) Substance induced mood disorder Code(s): F19.94 - OTH PSYCHOACTIVE SUBSTANCE USE, UNSP W MOOD DISORDER (6) Drug-induced mood disorder Code(s): F19.94 - OTH PSYCHOACTIVE SUBSTANCE USE, UNSP W MOOD DISORDER Visit type - Emergency Visit Emergency Visit: Yes ED Registration Date: 07/28/16 Care time: The patient presented to the Emergency Department on the above date and was hospitalized for further evaluation of their emergent condition. - New Patient This patient is new to me today: Yes Date on this admission: 07/28/16 - Critical Care Critical Care patient: No
[2016-07-28 02:08] LABS: URINE APPEARANCE CLEAR; URINE BILIRUBIN NEGATIVE (NEGATIVE); URINE BLOOD NEGATIVE (NEGATIVE); URINE COLOR STRAW; URINE GLUCOSE (UA) NEGATIVE (NEGATIVE); URINE KETONE NEGATIVE (NEGATIVE); URINE LEUK ESTERASE NEGATIVE (NEGATIVE); URINE NITRITE NEGATIVE (NEGATIVE); URINE PROTEIN NEGATIVE (NEGATIVE); URINE UROBILINOGEN NEGATIVE E.U./dl (0.2-1.0)
[2016-07-28] MEDS: SODIUM CHLORIDE 1,000 ML IV SCH (02:21)
[2016-07-28 02:27] LABS: URINE MARIJUANA THC NEGATIVE ng/ml (CUTOFF=50)
[2016-07-28] MEDS ORDERED: LORAZEPAM CARPU-JECT 2 MG/ML DISP.SYRIN IVPUSH PRN (02:37)
[2016-07-28] MEDS ORDERED: levETIRAcetam 500 MG/5 ML INJECTION VIAL IVPB ONE (03:55)
[2016-07-28] MEDS: METHADONE HCL 10 MG TABLET PO SCH ×2 (04:07→13:28)
[2016-07-28] MEDS: traZODone HCL 50 MG TABLET (FP) PO SCH ×2 (04:07→21:23)
[2016-07-28] MEDS: LORAZEPAM CARPU-JECT 2 MG/ML DISP.SYRIN IVPUSH PRN ×4 (04:09→19:41)
[2016-07-28] MEDS: carBAMazepine 200 MG TABLET PO SCH ×3 (04:36→21:23)
[2016-07-28] MEDS ORDERED: LEVETIRACETAM PO SCH (06:00)
[2016-07-28] MEDS ORDERED: levETIRAcetam 500 MG TABLET (FP) PO SCH (06:00)
[2016-07-28 08:21] LABS: CALCIUM 9.4 mg/dL (8.5-10.1); MAGNESIUM 2.5 mg/dL (1.8-2.4)
[2016-07-28 08:33] LABS: COCKROFT - GAULT 116.7305; CREATININE 0.7 mg/dL (0.55-1.02); PHOSPHOROUS 4.5 mg/dL (2.5-4.9); THYROID STIMULATING HORMONE 0.07 uIU/ml (0.358-3.74)
[2016-07-28 08:37] LABS: BASOPHIL 0.6 % (0-2.0); EOSINOPHIL 1.3 % (0-4.5); MCH 29.1 pg (25.7-33.7); MCHC 32.6 g/dl (32.0-36.0); MEAN CELL VOLUME 89.3 fl (80-96); MEAN PLT VOLUME 8.8 fl (7.5-11.1); NEUTROPHILS 72.7 % (42.8-82.8); PLATELET COUNT 268 K/MM3 (134-434); RDW 15.5 % (11.6-15.6); WHITE BLOOD COUNT 7.3 K/mm3 (4.0-10.0)
[2016-07-28] MEDS ORDERED: PT OWN MED DRAWER 7, Y5N ONE (08:44)
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
[2016-07-28] MEDS ORDERED: METHADONE HCL 10 MG TABLET PO SCH (10:00)
[2016-07-28] MEDS ORDERED: carBAMazepine 200 MG TABLET PO SCH (10:00)
[2016-07-28] MEDS: levETIRAcetam 500 MG TABLET (FP) PO SCH ×2 (10:05→22:18)
[2016-07-28] MEDS: RANITIDINE HCL 150 MG TABLET (FP) PO SCH ×2 (10:05→21:23)
[2016-07-28] MEDS ORDERED: METHADONE HCL 10 MG TABLET PO ONE (10:08)
--- NOTE | 2016-07-28 11:47 | PN ---
[facility] Progress Note (SOAP) Subjective: Pt. completed detox on 07/27 and went to rehab. While in rehab she had a witnessed seizure. She was sent to ED for evaluation & stabilization. Objective: 07/28/16 11:44 Vital Signs - 8 hr 07/28/16 07/28/16 07/28/16 04:52 08: 08:27 Temperature 98.0 F Pulse Rate 84 89 Respiratory 20 16 16 Rate Blood Pressure 104/60 98/66 O2 Sat by Pulse 98 98 Oximetry (%) Laboratory Last Values WBC 7.3 K/mm3 (4.0-10.0) 07/28/16 06:11 RBC 4.40 M/mm3 (3.60-5.2) 07/28/16 06:11 Hgb 12.8 GM/dL (10.7-15.3) 07/28/16 06:11 Hct 39.3 % (32.4-45.2) 07/28/16 06:11 MCV 89.3 fl (80-96) 07/28/16 06:11 MCHC 32.6 g/dl (32.0-36.0) 07/28/16 06:11 RDW 15.5 % (11.6-15.6) 07/28/16 06:11 Plt Count 268 K/MM3 (134-434) 07/28/16 06:11 MPV 8.8 fl (7.5-11.1) 07/28/16 06:11 Neutrophils % 72.7 % (42.8-82.8) D 07/28/16 06:11 Lymphocytes % 19.2 % (8-40) D 07/28/16 06:11 Monocytes % 6.2 % (3.8-10.2) 07/28/16 06:11 Eosinophils % 1.3 % (0-4.5) 07/28/16 06:11 Basophils % 0.6 % (0-2.0) 07/28/16 06:11 Sodium 140 mmol/L (136-145) 07/28/16 06:11 Potassium 4.7 mmol/L (3.5-5.1) 07/28/16 06:11 Chloride 103 mmol/L (98-107) 07/28/16 06:11 Carbon Dioxide 29 mmol/L (21-32) 07/28/16 06:11 Anion Gap 8 (8-16) 07/28/16 06:11 BUN 13 mg/dL (7-18) 07/28/16 06:11 Creatinine 0.7 mg/dL (0.55-1.02) 07/28/16 06:11 Creat Clearance w eGFR > 60 (>60) 07/27/16 20:43 Random Glucose 99 mg/dL (74-106) 07/28/16 06:11 Calcium 9.4 mg/dL (8.5-10.1) 07/28/16 06:11 Phosphorus 4.5 mg/dL (2.5-4.9) 07/28/16 06:11 Magnesium 2.5 mg/dL (1.8-2.4) H 07/28/16 06:11 Total Bilirubin 0.1 mg/dL (0.2-1.0) L 07/27/16 20:43 AST 22 U/L (15-37) D 07/27/16 20:43 ALT 22 U/L (12-78) D 07/27/16 20:43 Alkaline Phosphatase 123 U/L (45-117) H 07/27/16 20:43 Total Protein 7.1 g/dl (6.4-8.2) 07/27/16 20:43 Albumin 3.5 g/dl (3.4-5.0) 07/27/16 20:43 TSH 0.07 uIU/ml (0.358-3.74) L 07/28/16 06:11 Free T4 0.81 ng/dl (0.76-1.46) 07/28/16 06:11 Serum , Qual Negative 07/27/16 19:51 Urine Color Straw 07/28/16 01:50 Urine Appearance Clear 07/28/16 01:50 Urine pH 7.0 (5.0-8.0) 07/28/16 01:50 Ur Specific [place] 1.015 (1.005-1.025) 07/28/16 01:50 Urine Protein Negative (NEGATIVE) 07/28/16 01:50 Urine Glucose (UA) Negative (NEGATIVE) 07/28/16 01:50 Urine Ketones Negative (NEGATIVE) 07/28/16 01:50 Urine Blood Negative (NEGATIVE) 07/28/16 01:50 Urine Nitrite Negative (NEGATIVE) 07/28/16 01:50 Urine Bilirubin Negative (NEGATIVE) 07/28/16 01:50 Urine Urobilinogen Negative E.U./dl (0.2-1.0) 07/28/16 01:50 Ur Leukocyte Esterase Negative (NEGATIVE) 07/28/16 01:50 Opiates Screen Negative ng/ml (JREPHW=967) 07/28/16 01:50 Methadone Screen Negative ng/ml (VJXGFR=073) 07/28/16 01:50 Barbiturate Screen Negative ng/ml (VRPHHH=656) 07/28/16 01:50 Phencyclidine Screen Negative ng/ml (CUTOFF=25) 07/28/16 01:50 Ur Amphetamines Screen Negative ng/ml (BLXTAR=214) 07/28/16 01:50 MDMA (Ecstasy) Screen Negative ng/ml (HBJOIO=439) 07/28/16 01:50 Benzodiazepines Screen Negative ng/ml (RADYXH=935) 07/28/16 01:50 Cocaine Screen Negative ng/ml (DWHFWN=538) 07/28/16 01:50 U Marijuana (THC) Screen Negative ng/ml (CUTOFF=50) 07/28/16 01:50 labs noted Assessment: 07/28/16 11:46 Seizure disorder Plan: Pt. does not need to be on methadone taper because she already completed detox. I discussed this with pt., she does not agree. I offered clonidine bid which she accepted. No more methadone because pt has completed detox. At this point she drug seeking.
--- NOTE | 2016-07-28 15:22 | CON.PSY ---
Psychiatry Consult Chief Complaint: I came in for Seizures, I weas using IV Heroin. I have a history of anxirty aqnd PTSD. patient appears verry comfortable and is on the phone having a conversation. Symptoms: reports: Anxiety, Restlessness - Previous Psychiatric Treatment Outpatient: More than 6 mos ago Inpatient: None - Previous Substance Abuse Treatment Outpatient: More than 6 mos ago - Reason for Previous Treatment Reason for Previous Treatment: Past Traumatic Stress, Heroin or Other Narcotics - Current Medications Current Medications: Active Medications Carbamazepine (Tegretol -) 200 mg PO BID [facility] Last Admin: 07/28/16 10:04 Dose: 200 mg Sodium Chloride (Normal Saline -) 1,000 mls @ 75 mls/hr IV ASDIR [facility] Last Admin: 07/28/16 02:21 Dose: 75 mls/hr Levetiracetam (Keppra -) 1,500 mg PO BID [facility] Last Admin: 07/28/16 10:05 Dose: 1,500 mg Lorazepam (Ativan Injection -) 2 mg IVPUSH Q1H PRN PRN Reason: MUSCLE SPASMS Last Admin: 07/28/16 13:27 Dose: 2 mg Quetiapine Fumarate (Seroquel -) 50 mg PO BID [facility] Ranitidine HCl (Zantac -) 150 mg PO BID [facility] Last Admin: 07/28/16 10:05 Dose: 150 mg Trazodone HCl (Desyrel -) 50 mg PO HS [facility] Last Admin: 07/28/16 04:07 Dose: 50 mg - Allergies Allergies: Allergies Allergy/AdvReac Type Severity Reaction Status Date / Time No Known Allergies Allergy Verified 07/27/16 19:12 - Current Living Status Usual Living Arrangement: Alone - Current Mental Status Evaluation Appearance: Well Groomed Attitude: Cooperative - Affect Affect: Full Range Appropriateness: Appropriate to Content - Mood Mood: Irritable - Speech/Language Expressive: Coherent - Psychomotor Activity Psychomotor Activity: Normal - Thought Process Thought Process: Intact - Thought Content Hallucinations: Absent Delusions: Absent - Cognition Attention: Alert Orientation: Time Memory, Immediate Recall: Intact - Concentration Serial Sevens Intact: No Simple Calculations Intact: No - Abstraction Proverb Interpretation: Intact Judgement: Intact - Insight Insight: Intact - Impulse Control Impulse Control: Minimally Impaired - Suicidal Ideation Suicidal Ideation: No - Homicidal Ideation Homicidal Ideation: No Assessment/Plan 1) Patient is not suicidal or Homicidal at tyhis time. 2) Add Seroquel 50mg po bid. 3) D/C when medically stable.
--- NOTE | 2016-07-28 21:00 | HOSP ---
Subjective - Review of Symptoms Events since last encounter: Hospitalist Encounter Notified via telephone that the patient was having ?seizure like activity Arrived to bedside, patient is unresponsive to verbal stimulus, responds with grimacing of face to tactile/painful stimulus, appears to be having mild upper body twitching, with her hands balled into fists. Upper arms checked for drift- negative. Patient checked for incontinence- remains dry. Patient on cardiac cath technologist -ST 120s, BP 108/64, R 16, Spo2 98% NRB. padding noted to side rails, airway maintained. Patient appears to be having Pseudo-seizures. Will continue to monitor and treat accordingly. Neurological: Yes: Other (pseudo-seizure activity) Physical Examination Vital Signs: Vital Signs Temperature 98.8 F 07/28/16 17:00 Pulse Rate 85 07/28/16 17:00 Respiratory Rate 18 07/28/16 17:00 Blood Pressure 103/58 07/28/16 17:00 O2 Sat by Pulse Oximetry (%) 98 07/28/16 08:27 Constitutional: Yes: Mild Distress, Thin Eyes: Yes: PERRL Cardiovascular: Yes: Tachycardia, S1, S2 Respiratory: Yes: WNL, Regular, CTA Bilaterally, Other (NRB) Peripheral Pulses WNL: Yes Neurological: Yes: Other (pseudo-seizure activity) Labs: CBC, BMP 07/28/16 06:11 07/28/16 06:11 Current Medications Generic Name Dose Route Start Last Admin Trade Name Freq PRN Reason Stop Dose Admin Carbamazepine 200 mg 07/28/16 03:45 07/28/16 10:04 Tegretol - PO 200 mg BID ELIZABETH Administration Clonidine 0.1 mg 07/28/16 22:00 Catapres - PO BID ELIZABETH Sodium Chloride 1,000 mls @ 75 mls/hr 07/28/16 01:00 07/28/16 02:21 Normal Saline - IV 75 mls/hr ASDIR ELIZABETH Administration Levetiracetam 1,500 mg 07/28/16 10:00 07/28/16 10:05 Keppra - PO 1,500 mg BID ELIZABETH Administration Lorazepam 2 mg 07/28/16 03:58 07/28/16 19:41 Ativan Injection - IVPUSH 2 mg Q1H PRN Administration MUSCLE SPASMS Quetiapine Fumarate 50 mg 07/28/16 22:00 Seroquel - PO BID ELIZABETH Ranitidine HCl 150 mg 07/28/16 10:00 07/28/16 10:05 Zantac - PO 150 mg BID ELIZABETH Administration Trazodone HCl 50 mg 07/28/16 03:45 07/28/16 04:07 Desyrel - PO 50 mg HS ELIZABETH Administration
[2016-07-28] MEDS: QUEtiapine FUMARATE 50 MG TABLET PO SCH (21:23)
[2016-07-28] MEDS: cloNIDine HCL 0.1 MG TABLET PO SCH (21:23)
[2016-07-28] MEDS ORDERED: traZODone HCL 50 MG TABLET (FP) PO SCH (22:00)
--- NOTE | 2016-07-28 22:54 | CON.NEURO ---
Consult Consult Specialty:: Neurology - History of Present Illness History of Present Illness: 30 year old female history of seizure since age of 9. She has history of GERD and Polysubtance abuse ( Nicotoine and heroin) She was in rehab and says when she withdraws from heroin she start to get seizure. She told me, best time when she do not have seizure , when she is doing heroin. Her seizure starts with right leg tingling and metallic taste adn than she become tonic clonic and with tongue bite and incontinence. She recently had seizures and was seen by hospitalist and seems to have no tongue bite or incontinence and there were atpyical feature suggestive of pseudo seizures. As per patient she had brain imaging done before and eeg were normal. she recenlty had eeg and it was normal and no seizure activity was noticed during seizures. She is currrently on cbz and keppra for seizure control. - Past Medical History ...LMP: 07/24/16 ...: No - Alcohol/Substance Use Hx Alcohol Use: No - Smoking History Smoking history: Current some day smoker Have you smoked in the past 12 months: No Aproximately how many cigarettes per day: 10 - Social History Usual Living Arrangement: Alone Home Medications - Allergies Allergies/Adverse Reactions: Allergies Allergy/AdvReac Type Severity Reaction Status Date / Time No Known Allergies Allergy Verified 07/27/16 19:12 - Home Medications Home Medications: Ambulatory Orders Carbamazepine [Tegretol -] 200 mg PO BID 07/22/16 Levetiracetam [Keppra -] 1,400 mg PO TID 07/22/16 Trazodone HCl [Desyrel -] 50 mg PO HS #30 tablet 07/23/16 Haloperidol [Haldol -] 1 mg PO Q4HWA PRN 07/27/16 Ranitidine HCl [Zantac] 150 mg PO BID 07/27/16 Family Disease History - Family Disease History Family Disease History: Diabetes: Grandparent, Heart Disease: Mother Physical Exam-Neuro Vital Signs: Vital Signs Temperature 98.8 F 07/28/16 17:00 Pulse Rate 85 07/28/16 17:00 Respiratory Rate 18 07/28/16 17:00 Blood Pressure 103/58 07/28/16 17:00 O2 Sat by Pulse Oximetry (%) 98 07/28/16 08:27 Labs: CBC, BMP 07/28/16 06:11 07/28/16 06:11 NIH Stroke Scale - Total Score NIH Stroke Scale Score: 0 Assessment/Plan CC 30 year old female history of seizure since age of 9. She has history of GERD and Polysubtance abuse ( Nicotoine and heroin) She was in rehab and says when she withdraws from heroin she start to get seizure. She told me, best time when she do not have seizure , when she is doing heroin. Her seizure starts with right leg tingling and metallic taste adn than she become tonic clonic and with tongue bite and incontinence. She recently had seizures and was seen by hospitalist and seems to have no tongue bite or incontinence and there were atpyical feature suggestive of pseudo seizures. As per patient she had brain imaging done before and eeg were normal. she recenlty had eeg and it was normal and no seizure activity was noticed during seizures. She is currrently on cbz and keppra for seizure control. PHH,FH,ROS were reviewed in chart Neurological Examination MS alert oriented x 3 CN all intact Moving all extremity sensation is normal she is able to walk and have normal reflex EEG was reported normal Assessment Primary generalized seizure since childhood. These episodes seems to be nonepileptic seizure given that patient have these episode these are triggered by anxiety and heroin withdrawal, It is unlikely seizure medication would help her. Plan-- advise to continue same dose of CBZ and Keppra -- in absence of Video EEG monitoring , like to continue two AED for now and consider referring her to Video EEG monitoring outpatient. -- Leave upto Psychiatrist to address Heroin detox and anxiety treatment Thank you so much for consultation Please feel free to call me if you have any question Danie Fernando MD
[2016-07-29] MEDS: SODIUM CHLORIDE 1,000 ML IV SCH (01:40)
[2016-07-29 05:50] VITALS: TEMP 97.6
[2016-07-29] MEDS: LORAZEPAM CARPU-JECT 2 MG/ML DISP.SYRIN IVPUSH PRN ×2 (06:12→08:46)
[2016-07-29 07:08] LABS: BASOPHIL 0.5 % (0-2.0); EOSINOPHIL 2.6 % (0-4.5); MCH 29.8 pg (25.7-33.7); MCHC 33.2 g/dl (32.0-36.0); MEAN CELL VOLUME 89.7 fl (80-96); MEAN PLT VOLUME 8.2 fl (7.5-11.1); NEUTROPHILS 53.7 % (42.8-82.8); PLATELET COUNT 212 K/MM3 (134-434); RDW 15.5 % (11.6-15.6); WHITE BLOOD COUNT 6.1 K/mm3 (4.0-10.0)
[2016-07-29] MEDS ORDERED: PT OWN MED DRAWER 7, Y5N ONE ×2 (07:18→09:06)
[2016-07-29 07:38] VITALS: BP 98/52; PULSE 89
[2016-07-29 07:47] LABS: ALBUMIN 3.4 g/dl (3.4-5.0); ALK PHOS 115 U/L (45-117); ANION GAP 10 (8-16); BILIRUBIN,TOTAL 0.4 mg/dL (0.2-1.0); CALCIUM 8.6 mg/dL (8.5-10.1); CO2 27 mmol/L (21-32); CREATININE 0.7 mg/dL (0.55-1.02); GLUCOSE,RANDOM 85 mg/dL (74-106); SGOT/AST 17 U/L (15-37); SGPT/ALT 19 U/L (12-78); TOT PROT 6.7 g/dl (6.4-8.2)
[2016-07-29] MEDS: cloNIDine HCL 0.1 MG TABLET PO SCH (09:03)
[2016-07-29] MEDS: levETIRAcetam 500 MG TABLET (FP) PO SCH (09:03)
[2016-07-29] MEDS: RANITIDINE HCL 150 MG TABLET (FP) PO SCH (09:03)
[2016-07-29] MEDS: QUEtiapine FUMARATE 50 MG TABLET PO SCH (09:04)
[2016-07-29] MEDS: carBAMazepine 200 MG TABLET PO SCH (09:10)
[2016-07-29] MEDS ORDERED: levETIRAcetam 500 MG TABLET (FP) PO SCH (09:13)
[2016-07-29] MEDS ORDERED: diazePAM 5 MG TABLET PO PRN (09:28)
--- NOTE | 2016-07-29 09:51 | PN ---
Physical Exam: SUBJECTIVE: Patient seen and examined. Patient asking for methadone which she feels will help her stay clean. OBJECTIVE: Advised patient that I cannot put her on Methadone daily and will instead put her on Valium 5mg q 6 for withdrawals. Patient in agreement She is asking to go back to [facility]. Had overnight seizure like activity Keppra increased to 2000mg BID after speaking with neurologist, Dr. Fernando Vital Signs Period Temp Pulse Resp BP Sys/Kurtz Pulse Ox Last 24 Hr 97.5 F-99.3 F 77-120 16-20 95-112/49-64 98-99 GENERAL: The patient is awake, alert, and fully oriented, crying HEAD: Normal with no signs of trauma. EYES: PERRL, extraocular movements intact, sclera anicteric, conjunctiva clear. No ptosis. ENT: Ears normal, nares patent, oropharynx clear without exudates, moist mucous membranes. LUNGS: Breath sounds equal, clear to auscultation bilaterally, no wheezes, no crackles, no accessory muscle use. HEART: Regular rate and rhythm/sinus rhythm 90s on air sampling and monitoring ABDOMEN: Soft, nontender, nondistended, normoactive bowel sounds, no guarding, no rebound, no hepatosplenomegaly, no masses. EXTREMITIES: 2+ pulses, warm, well-perfused, no edema. NEUROLOGICAL: Normal speech, gait not observed -seizure precautions PSYCH: Normal mood, normal affect. SKIN: tract yan noted on bilateral arms. patient admits to recent injections of drug use. Laboratory Results - last 24 hr 07/28/16 07/28/16 07/28/16 01:50 06:11 19:51 WBC RBC Hgb Hct MCV MCHC RDW Plt Count MPV Neutrophils % Lymphocytes % Monocytes % Eosinophils % Basophils % Sodium Potassium Chloride Carbon Dioxide Anion Gap BUN Creatinine Creat Clearance w eGFR POC Glucometer 86 Random Glucose Calcium Total Bilirubin AST ALT Alkaline Phosphatase Total Protein Albumin Free T3 2.6 Ur Specific [place] 1.015 07/29/16 07/29/16 05:35 05:35 WBC 6.1 RBC 4.31 Hgb 12.8 Hct 38.7 MCV 89.7 MCHC 33.2 RDW 15.5 Plt Count 212 D MPV 8.2 Neutrophils % 53.7 D Lymphocytes % 35.8 D Monocytes % 7.4 Eosinophils % 2.6 D Basophils % 0.5 Sodium 142 Potassium 4.7 Chloride 105 Carbon Dioxide 27 Anion Gap 10 BUN 12 Creatinine 0.7 Creat Clearance w eGFR > 60 POC Glucometer Random Glucose 85 Calcium 8.6 Total Bilirubin 0.4 D AST 17 D ALT 19 Alkaline Phosphatase 115 Total Protein 6.7 Albumin 3.4 Free T3 Ur Specific [place] Active Medications Generic Name Dose Route Start Last Admin Trade Name Freq PRN Reason Stop Dose Admin Carbamazepine 200 mg 07/28/16 03:45 07/29/16 09:10 Tegretol - PO 200 mg BID ELIZABETH Administration Clonidine 0.1 mg 07/28/16 22:00 07/29/16 09:03 Catapres - PO Not Given BID ELIZABETH Diazepam 5 mg 07/29/16 09:28 Valium - PO Q6H PRN WITHDRAWAL(CONT SUBST) Levetiracetam 2,000 mg 07/29/16 09:13 Keppra - PO BID ELIZABETH Quetiapine Fumarate 50 mg 07/28/16 22:00 07/29/16 09:04 Seroquel - PO 50 mg BID ELIZABETH Administration Ranitidine HCl 150 mg 07/28/16 10:00 07/29/16 09:03 Zantac - PO 150 mg BID ELIZABETH Administration Trazodone HCl 50 mg 07/28/16 03:45 07/28/16 21:23 Desyrel - PO 50 mg HS ELIZABETH Administration ASSESSMENT/PLAN: Patient is a 30 year old female with a significant past medical history of polysubstance abuse, IV drug use (heroin) seizures since adolescents, GERD, suicide attempt via hanging on 02/2016. She was brought into [place] from [facility] due to several witnessed episodes of tonic clonic seizures lasting < 1min each followed by brief post ictal state. Neurology Seizures vs. psuedo seizures - chronic Assessment/Plan: seizures likely secondary to opioid withdrawal vs. anti seizure med non compliance vs. stress induced Spoke with Dr. Fernando, who is in agreement of increasing the Keppra dose to Keppra 2000mg BID Echo reviewed Now on Keppra 2000 mg BID Tegretol 200mg PO BID Trazodone 50mg @ hs Valium PRN for withdrawal symptoms Keppra levels pending, pt to follow up with Dr. Miner (neurologist) as an outpatient Neuro recommend patient to have Video EEG monitoring for seizures Psyche: IV drug use/Polysubstance abuse Assessment/Plan: Pt admits to [facility] and IV heroin use Has completed detox at [facility], now at rehab - will send back to [facility] As per Dr. Ananth Pfeiffer - will not give patient any additional Methadone Patient plan to continue on rehab on d/c @ [facility] thyroid TSH levels are low, normal t3, t4. Patient to follow up with PCP in 4 to 6 weeks for repeat test. Disposition: Discharge back to [facility] for rehab. Full code. Visit type - Emergency Visit Emergency Visit: Yes ED Registration Date: 07/28/16 Care time: The patient presented to the Emergency Department on the above date and was hospitalized for further evaluation of their emergent condition. - New Patient This patient is new to me today: No - Critical Care Critical Care patient: No - Discharge Referral Referred to [facility] No
--- NOTE | 2016-07-29 10:00 | DS ---
Physical Exam: SUBJECTIVE: Patient seen and examined. Patient asking for methadone which she feels will help her stay clean. OBJECTIVE: Advised patient that I cannot put her on Methadone daily and will instead put her on Valium 5mg q 6 for withdrawals. Patient in agreement She is asking to go back to [facility]. Had overnight seizure like activity Keppra increased to 2000mg BID after speaking with neurologist, Dr. Fernando Spoke to Dr. Ananth Pfeiffer who accepts patient back to rehab. Vital Signs Period Temp Pulse Resp BP Sys/Kurtz Pulse Ox Last 24 Hr 97.5 F-99.3 F 77-120 16-20 95-112/49-64 98-99 PHYSICAL EXAM GENERAL: The patient is awake, alert, and fully oriented, crying HEAD: Normal with no signs of trauma. EYES: PERRL, extraocular movements intact, sclera anicteric, conjunctiva clear. No ptosis. ENT: Ears normal, nares patent, oropharynx clear without exudates, moist mucous membranes. LUNGS: Breath sounds equal, clear to auscultation bilaterally, no wheezes, no crackles, no accessory muscle use. HEART: Regular rate and rhythm/sinus rhythm 90s on playground monitor ABDOMEN: Soft, nontender, nondistended, normoactive bowel sounds, no guarding, no rebound, no hepatosplenomegaly, no masses. EXTREMITIES: 2+ pulses, warm, well-perfused, no edema. NEUROLOGICAL: Normal speech, gait not observed -seizure precautions PSYCH: Normal mood, normal affect. SKIN: tract yan noted on bilateral arms. patient admits to recent injections of drug use. LABS Laboratory Results - last 24 hr 07/28/16 07/28/16 07/28/16 01:50 06:11 19:51 WBC RBC Hgb Hct MCV MCHC RDW Plt Count MPV Neutrophils % Lymphocytes % Monocytes % Eosinophils % Basophils % Sodium Potassium Chloride Carbon Dioxide Anion Gap BUN Creatinine Creat Clearance w eGFR POC Glucometer 86 Random Glucose Calcium Total Bilirubin AST ALT Alkaline Phosphatase Total Protein Albumin Free T3 2.6 Ur Specific Terry 1.015 07/29/16 07/29/16 05:35 05:35 WBC 6.1 RBC 4.31 Hgb 12.8 Hct 38.7 MCV 89.7 MCHC 33.2 RDW 15.5 Plt Count 212 D MPV 8.2 Neutrophils % 53.7 D Lymphocytes % 35.8 D Monocytes % 7.4 Eosinophils % 2.6 D Basophils % 0.5 Sodium 142 Potassium 4.7 Chloride 105 Carbon Dioxide 27 Anion Gap 10 BUN 12 Creatinine 0.7 Creat Clearance w eGFR > 60 POC Glucometer Random Glucose 85 Calcium 8.6 Total Bilirubin 0.4 D AST 17 D ALT 19 Alkaline Phosphatase 115 Total Protein 6.7 Albumin 3.4 Free T3 Ur Specific Terry HOSPITAL COURSE: Date of Admission:07/28/16 Date of Discharge: 07/29/16 Patient is a 30 year old female with a significant past medical history of polysubstance abuse, IV drug use (heroin) seizures since adolescents, GERD, suicide attempt via hanging on 02/2016. She was brought into [place] from [facility] due to several witnessed episodes of tonic clonic seizures lasting < 1min each followed by brief post ictal state. Neurology Seizures vs. psuedo seizures - chronic Assessment/Plan: seizures likely secondary to opioid withdrawal vs. anti seizure med non compliance vs. stress induced Spoke with Dr. Fernando, who is in agreement of increasing the Keppra dose to Keppra 2000mg BID Echo reviewed Now on Keppra 2000 mg BID Tegretol 200mg PO BID Trazodone 50mg @ hs Valium PRN for withdrawal symptoms Keppra levels pending, pt to follow up with Dr. Miner (neurologist) as an outpatient Neuro recommend patient to have Video EEG monitoring for seizures Psyche: IV drug use/Polysubstance abuse Assessment/Plan: Pt admits to Percocet and IV heroin use Has completed detox at [facility], now at rehab - will send back to [facility] As per Dr. Ananth Pfeiffer - will not give patient any additional Methadone Patient plan to continue on rehab on d/c @ [facility] thyroid TSH levels are low, normal t3, t4. Patient to follow up with PCP in 4 to 6 weeks for repeat test. Disposition: Discharge back to [facility] for rehab. Full code. Minutes to complete discharge: 60 Discharge Summary Reason For Visit: SEIZURE/OPIOD DEPENDENT W/WITHDRAWAL Current Active Problems Alcohol dependence (Chronic) Cocaine dependence (Chronic) GERD (gastroesophageal reflux disease) (Chronic) Nicotine dependence (Chronic) Opioid dependence with withdrawal (Chronic) PTSD (post-traumatic stress disorder) (Chronic) Seizure (Chronic) Substance induced mood disorder (Chronic) Condition: Stable - Instructions Diet, Activity, Other Instructions: Ms. Parra: Please continue the increase of the Tegregol and Keppra, they were called into your pharmacy. Please follow up with your neurologist. If you do not have one, I have referred you to the neurologist that attended you while you were hospitalized. You will need a Video EEG monitoring of your seizures as an outpatient, your neurologist will send you a referral with the facilities. I have prescribed Valium 5mg q6 hours for withdrawals symptoms. Please call me with any questions you may have. Your thyroid TSH levels are low, please follow up with your PCP in 4 to 6 weeks for repeat test. Naheed Rinaldi CHECK WEIGHER [phone] Referrals: Danie Fernando MD [Staff Physician] - Viraj Nicole MD [Staff Physician] - Disposition: LONG-TERM FACILITY - Home Medications Comprehensive Discharge Medication List: Ambulatory Orders Levetiracetam [Keppra -] 1,400 mg PO TID 07/22/16 Trazodone HCl [Desyrel -] 50 mg PO HS #30 tablet 07/23/16 Carbamazepine [Tegretol -] 200 mg PO BID #60 tab 07/29/16 Carbamazepine [Tegretol -] 200 mg PO BID #60 tablet 07/29/16 Clonidine HCl [Catapres -] 0.1 mg PO BID #60 tablet 07/29/16 Diazepam [Valium] 5 mg PO Q6H PRN #60 tablet MDD 4 tablets 07/29/16 Levetiracetam [Keppra -] 2,000 mg PO BID #60 tablet 07/29/16 Quetiapine Fumarate [Seroquel -] 50 mg PO BID #60 tablet 07/29/16 Ranitidine HCl [Zantac] 150 mg PO BID #60 tab 07/29/16 Trazodone HCl [Desyrel -] 50 mg PO HS #30 tablet 07/29/16 This patient is new to me today: No Emergency Visit: Yes ED Registration Date: 07/28/16 Care time: The patient presented to the Emergency Department on the above date and was hospitalized for further evaluation of their emergent condition. Critical Care patient: No - Discharge Referral Referred to [facility] Med [facility].C[facility] No
[2016-07-29] MEDS ORDERED: LORAZEPAM CARPU-JECT 2 MG/ML DISP.SYRIN IVPUSH ONE (10:39)
[2016-07-29] MEDS ORDERED: LORAZEPAM CARPU-JECT 2 MG/ML DISP.SYRIN ONE (10:40)
--- NOTE | 2016-08-01 10:27 | EKG ---
Test Reason : Blood Pressure : / mmHG Vent. Rate : 114 BPM Atrial Rate : 114 BPM P-R Int : 152 ms QRS Dur : 080 ms QT Int : 328 ms P-R-T Axes : 064 055 077 degrees QTc Int : 452 ms SINUS TACHYCARDIA OTHERWISE NORMAL ECG WHEN COMPARED WITH ECG OF 22-JUL-2016 19:14, NO SIGNIFICANT CHANGE WAS FOUND Confirmed by MD ALEN, YOLETTE ([id number]) on 08/01/2016 10:27:06 AM Referred By: Confirmed By:YOLETTE LOWRY MD
== END 2016-07-29 12:00 | DRG 53 ==
LOC: JER 18:54 → JERBED 22:49 → J4W 07-28 00:23 → OBSVTOIN 07-28 00:52
PROVIDERS: ADMIT Internal Medicine; ATTEND Nurse Practitioner Family
DX: G40.909 Epilepsy, unspecified, not intractable, without status epilepticus (principal); K21.9 Gastro-esophageal reflux disease without esophagitis; F11.20 Opioid dependence, uncomplicated; F17.210 Nicotine dependence, cigarettes, uncomplicated; Z91.19 Patient's noncompliance with other medical treatment and regimen
CPT/HCPCS: 36415; 80048; 80053; 80307; 81003; 83735; 84100; 84439; 84443; 84481; 84703; 85025; 87086; 93005; 93010; 93306-TC; 95816; 99282-25; G0378

== ENCOUNTER 2016-07-29 13:04 | Inpatient (IN) | payer OTHER ==
[2016-07-29 13:23] VITALS: BMI 21.6
--- NOTE | 2016-07-29 13:45 | HP ---
[facility] Rehab Assess/Revision - Admission History Admitted to Rehab from: Emergency Department - Vital signs Vital Signs: Vital Signs Period Temp Pulse Resp BP Sys/Kurtz Pulse Ox Last 24 Hr 96.9 F 106 20 106/69 - Findings Detox History & Physical reviewed: Yes Concur with findings: Yes
[2016-07-29] MEDS ORDERED: LOPERAMIDE HCL 2 MG CAPSULE PO PRN (13:50)
[2016-07-29] MEDS ORDERED: ACETAMINOPHEN 325 MG TABLET (FP) PO PRN (13:50)
[2016-07-29] MEDS ORDERED: MENTHOL/PHENOL 1 EACH UD MM PRN (13:50)
[2016-07-29] MEDS ORDERED: MAG HYDROX/AL HYDROX/SIMETH 30 ML UNIT-DOSE CUP PO PRN (13:50)
[2016-07-29] MEDS ORDERED: MAGNESIUM HYDROX 2400MG/30ML ORAL SUSPENSION 30 ML CUP PO PRN (13:50)
[2016-07-29] MEDS ORDERED: MAGNESIUM CITRATE 300 ML BOTTLE PO PRN (13:50)
[2016-07-29] MEDS ORDERED: diphenhydrAMINE HCL 50 MG CAPSULE PO PRN (13:50)
[2016-07-29] MEDS ORDERED: guaiFENesin/D-METHORPHAN HB 10 ML UNIT-DOSE CUPS PO PRN (13:50)
[2016-07-29] MEDS ORDERED: diazePAM 5 MG TABLET PO PRN (13:55)
[2016-07-29] MEDS: hydrOXYzine PAMOATE 50 MG CAPSULE (FP) PO PRN ×2 (15:14→20:07)
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
[2016-07-29] MEDS: CYCLOBENZAPRINE HCL 10 MG TABLET (FP) PO PRN (17:29)
[2016-07-29] MEDS: QUEtiapine FUMARATE 50 MG TABLET PO SCH (21:14)
[2016-07-29] MEDS: levETIRAcetam 500 MG TABLET (FP) PO SCH (21:14)
[2016-07-29] MEDS: traZODone HCL 50 MG TABLET (FP) PO SCH (21:14)
[2016-07-29] MEDS: carBAMazepine 200 MG TABLET PO SCH (21:14)
[2016-07-29] MEDS: cloNIDine HCL 0.1 MG TABLET PO SCH (21:14)
[2016-07-29] MEDS: RANITIDINE HCL 150 MG TABLET (FP) PO SCH (21:15)
[2016-07-29] MEDS: THIAMINE HCL 100 MG TABLET (FP) PO SCH (21:15)
[2016-07-29] MEDS ORDERED: cloNIDine HCL 0.1 MG TABLET PO SCH (22:00)
[2016-07-30] MEDS: CYCLOBENZAPRINE HCL 10 MG TABLET (FP) PO PRN ×2 (06:34→21:21)
[2016-07-30] MEDS: RANITIDINE HCL 150 MG TABLET (FP) PO SCH ×2 (09:00→21:21)
[2016-07-30] MEDS: levETIRAcetam 500 MG TABLET (FP) PO SCH ×2 (09:00→21:21)
[2016-07-30] MEDS: carBAMazepine 200 MG TABLET PO SCH ×2 (09:01→21:21)
[2016-07-30] MEDS: cloNIDine HCL 0.1 MG TABLET PO SCH ×2 (09:01→21:21)
[2016-07-30] MEDS: QUEtiapine FUMARATE 50 MG TABLET PO SCH ×2 (09:01→21:21)
[2016-07-30] MEDS: PRENATAL VITAMINS W/ FOLIC ACID TABLET (FP) PO SCH (09:01)
[2016-07-30] MEDS: NICOTINE 21 MG/24 HOURS TOPICAL PATCH TD SCH (09:01)
--- NOTE | 2016-07-30 10:11 | PN ---
[facility] Progress Note Note: responded to rapid respond on arrival patient is alert no seizure activity blinking her eyelid bp 102/64,p100,r20,t97.3 no evidence of seizure rx close monitoring seizure precaution cont keppra 2000 mgs po bid cont tegratol 200 mgs po bid
--- NOTE | 2016-07-30 12:20 | EKG ---
Test Reason : Blood Pressure : / mmHG Vent. Rate : 091 BPM Atrial Rate : 091 BPM P-R Int : 176 ms QRS Dur : 086 ms QT Int : 356 ms P-R-T Axes : 066 041 066 degrees QTc Int : 437 ms NORMAL SINUS RHYTHM NORMAL ECG WHEN COMPARED WITH ECG OF 27-JUL-2016 19:27, NO SIGNIFICANT CHANGE WAS FOUND Confirmed by MD LOWRY GREGORY ([id number]) on 07/30/2016 12:20:14 PM Referred By: Confirmed By:YOLETTE LOWRY MD
--- NOTE | 2016-07-30 13:47 | PN ---
[facility] Progress Note Note: responded to rapid respond self induced seizure spontaneous stop seizure bp 134/79,p108,.r 20 pulse oximeter 100 no post ictal close monitoring
--- NOTE | 2016-07-30 15:48 | PN ---
[facility] Progress Note Note: ADDENDUM ALERT,ORIENTED X3 VITAL SIGNS STABLE EXPLAINED TO PATIENT THAT SHE WILL CONTINUE TO RECEIVE KEPPRA 2000 MGS PO BID AND TEGRATOL 200 MGS PO BID AND MONITORING FOR SEIZURE AND REHAB ACTIVITY PATIENT UNDERSTAND WILL DO BLOOD FOR KEPPRA AND TEGRATOL LEVEL IN AM CLOSE MONITORING WITH SEIZURE PRECAUTION
[2016-07-30] MEDS: hydrOXYzine PAMOATE 50 MG CAPSULE (FP) PO PRN (16:55)
[2016-07-30] MEDS: THIAMINE HCL 100 MG TABLET (FP) PO SCH (21:21)
[2016-07-30] MEDS: traZODone HCL 50 MG TABLET (FP) PO SCH (21:21)
[2016-07-31] MEDS: hydrOXYzine PAMOATE 50 MG CAPSULE (FP) PO PRN ×3 (07:39→21:28)
[2016-07-31] MEDS: RANITIDINE HCL 150 MG TABLET (FP) PO SCH ×2 (09:11→21:26)
[2016-07-31] MEDS: levETIRAcetam 500 MG TABLET (FP) PO SCH ×2 (09:11→21:26)
[2016-07-31] MEDS: cloNIDine HCL 0.1 MG TABLET PO SCH ×2 (09:11→21:26)
[2016-07-31] MEDS: PRENATAL VITAMINS W/ FOLIC ACID TABLET (FP) PO SCH (09:11)
[2016-07-31] MEDS: carBAMazepine 200 MG TABLET PO SCH ×2 (09:12→21:26)
[2016-07-31] MEDS: NICOTINE 21 MG/24 HOURS TOPICAL PATCH TD SCH (09:12)
[2016-07-31] MEDS: QUEtiapine FUMARATE 50 MG TABLET PO SCH ×2 (09:12→21:26)
[2016-07-31 18:10] LABS: URINE APPEARANCE SLCLOUDY; URINE BILIRUBIN NEGATIVE (NEGATIVE); URINE BLOOD NEGATIVE (NEGATIVE); URINE COLOR LTYELLOW; URINE GLUCOSE (UA) NEGATIVE (NEGATIVE); URINE KETONE NEGATIVE (NEGATIVE); URINE NITRITE NEGATIVE (NEGATIVE); URINE PROTEIN NEGATIVE (NEGATIVE); URINE UROBILINOGEN NEGATIVE E.U./dl (0.2-1.0)
[2016-07-31 18:20] LABS: URINE LEUK ESTERASE 1+ (NEGATIVE)
[2016-07-31 18:25] LABS: URINE MUCUS RARE; URINE RBC 1 /hpf (0-3); URINE WBC 6 /hpf (3-5)
[2016-07-31] MEDS: THIAMINE HCL 100 MG TABLET (FP) PO SCH (21:26)
[2016-07-31] MEDS: traZODone HCL 50 MG TABLET (FP) PO SCH (21:26)
[2016-07-31] MEDS: CYCLOBENZAPRINE HCL 10 MG TABLET (FP) PO PRN (21:27)
--- NOTE | 2016-08-01 09:10 | PN ---
Psychiatric Progress Note Vital Signs: Vital Signs Period Temp Pulse Resp BP Sys/Kurtz Pulse Ox Last 24 Hr 97.7 F-97.8 F 85-98 16-18 94-124/59-76 Date of Session: 08/01/16 Chief Complaint:: Zamzam not sleeping ,zamzam nervious and it makes me irritable. HPI: Patient addressed Alcohol,Cocaine and Opioid dependence comorbid with PTSD. ROS: Significant for GERD,Seizure disorder. Current Medications: Active Medications Generic Name Dose Route Start Last Admin Trade Name Freq PRN Reason Stop Dose Admin Acetaminophen 650 mg 07/29/16 13:50 Tylenol - PO Q4H PRN PAIN Al Hydroxide/Mg Hydroxide 30 ml 07/29/16 13:50 Mylanta Oral Suspension - PO Q6H PRN DYSPEPSIA Carbamazepine 200 mg 07/29/16 22:00 07/31/16 21:26 Tegretol - PO 200 mg BID ELIZABETH Administration Clonidine 0.1 mg 07/29/16 22:00 07/31/16 21:26 Catapres - PO 0.1 mg BID ELIZABETH Administration Cyclobenzaprine HCl 10 mg 07/29/16 16:28 07/31/16 21:27 Flexeril - PO 10 mg TID PRN Administration MUSCLE SPASMS Diphenhydramine HCl 50 mg 07/29/16 13:50 Benadryl - PO HSMR1 PRN INSOMNIA Eucalyptus/Menthol/Phenol/Sorbitol 1 each 07/29/16 13:50 Cepastat Lozenge - MM Q4H PRN SORE THROAT Guaifenesin 10 ml 07/29/16 13:50 Robitussin Dm - PO Q6H PRN COUGH Hydroxyzine Pamoate 50 mg 07/29/16 13:50 07/31/16 21:28 Vistaril - PO 50 mg Q4H PRN Administration AGITATION Ibuprofen 400 mg 07/29/16 13:50 Motrin - PO Q6H PRN SEVERE PAIN Levetiracetam 2,000 mg 07/29/16 22:00 07/31/16 21:26 Keppra - PO 2,000 mg BID ELIZABETH Administration Loperamide HCl 4 mg 07/29/16 13:50 Imodium - PO Q6H PRN DIARRHEA Magnesium Citrate 300 ml 07/29/16 13:50 Citroma - PO Q48H PRN CONSTIPATION Magnesium Hydroxide 30 ml 07/29/16 13:50 Milk Of Magnesia - PO DAILY PRN CONSTIPATION Nicotine 21 mg 07/30/16 10:00 07/31/16 09:12 Nicoderm Patch - TD Not Given DAILY ELIZABETH Multivit/Folic Acid/Iron 1 tab 07/30/16 10:00 07/31/16 09:11 Vitamins (Sjr) - PO 1 tab DAILY ELIZABETH Administration Pseudoephedrine/Triprolidine 1 combo 07/29/16 13:50 Actifed - PO TID PRN NASAL CONGESTION Quetiapine Fumarate 100 mg 08/01/16 22:00 Seroquel - PO HS ELIZABETH Quetiapine Fumarate 75 mg 08/01/16 10:00 Seroquel - PO DAILY ELIZABETH Ranitidine HCl 150 mg 07/29/16 22:00 07/31/16 21:26 Zantac - PO 150 mg BID ELIZABETH Administration Thiamine HCl 100 mg 07/29/16 22:00 07/31/16 21:26 Vitamin B1 - PO 100 mg HS ELIZABETH Administration Trazodone HCl 100 mg 08/01/16 22:00 Desyrel - PO HS ELIZABETH Current Side Effect: No Lab tests ordered: No Lab tests reviewed: Yes Provider note:: Chart was revuewed,patient was seen in my office,treatment plan including medication managemnet has been discussed with the patient.Propertties of Trazodone and Seroquel has been discussed including side effect profile, benefits and dose adjustment.Seroquel 50 mg po bid will be adjusted to 75 mg po am and 100 mg po hs,Trazodone 50 mg po hs will be adjusted to 100 mg po hs. Supportive therapy priovided. Mental Status Exam - Mental Status Exam Alert and Oriented to: Time, Place, Person Cognitive Function: Grossly Intact Patient Appearance: Well Groomed Mood: Nervous, Anxious Affect: Mood Congruent, Labile Patient Behavior: Restless, Cooperative Speech Pattern: Clear Voice Loudness: Normal Thought Process: Goal Oriented Thought Disorder: Not Present Hallucinations: Denies Suicidal Ideation: Denies Homicidal Ideation: Denies Insight/Judgement: Fair Sleep: Difficulty falling asleep Appetite: Good Muscle strength/Tone: Normal Gait/Station: Normal Psychiatric Treatment Plan - Problem List (1) Alcohol dependence Current Visit: Yes (2) Cocaine dependence Current Visit: Yes (3) GERD (gastroesophageal reflux disease) Current Visit: Yes Qualifiers: (4) Nicotine dependence Current Visit: Yes Qualifiers: (5) Opioid dependence with withdrawal Current Visit: Yes (6) PTSD (post-traumatic stress disorder) Current Visit: Yes Comment: Self-report. (7) Seizure Current Visit: Yes Comment: treated with tegretal and keppra last dose 05/2016 last seizure 04/2016
[2016-08-01] MEDS: cloNIDine HCL 0.1 MG TABLET PO SCH ×2 (10:16→21:40)
[2016-08-01] MEDS: carBAMazepine 200 MG TABLET PO SCH ×2 (10:16→21:40)
[2016-08-01] MEDS: levETIRAcetam 500 MG TABLET (FP) PO SCH ×2 (10:16→21:40)
[2016-08-01] MEDS: RANITIDINE HCL 150 MG TABLET (FP) PO SCH ×2 (10:16→21:42)
[2016-08-01] MEDS: PRENATAL VITAMINS W/ FOLIC ACID TABLET (FP) PO SCH (10:16)
[2016-08-01] MEDS: QUEtiapine FUMARATE 25 MG TABLET (FP) PO SCH (10:16)
[2016-08-01] MEDS: NICOTINE 21 MG/24 HOURS TOPICAL PATCH TD SCH (10:18)
[2016-08-01] MEDS: THIAMINE HCL 100 MG TABLET (FP) PO SCH (21:40)
[2016-08-01] MEDS: QUEtiapine FUMARATE 100 MG TABLET (FP) PO SCH (21:42)
[2016-08-01] MEDS: traZODone HCL 100 MG TABLET (FP) PO SCH (21:42)
[2016-08-02] MEDS: cloNIDine HCL 0.1 MG TABLET PO SCH ×2 (10:46→21:38)
[2016-08-02] MEDS: levETIRAcetam 500 MG TABLET (FP) PO SCH ×2 (10:46→21:38)
[2016-08-02] MEDS: NICOTINE 21 MG/24 HOURS TOPICAL PATCH TD SCH (10:47)
[2016-08-02] MEDS: PRENATAL VITAMINS W/ FOLIC ACID TABLET (FP) PO SCH (10:47)
[2016-08-02] MEDS: RANITIDINE HCL 150 MG TABLET (FP) PO SCH ×2 (10:48→21:38)
[2016-08-02] MEDS: QUEtiapine FUMARATE 25 MG TABLET (FP) PO SCH (10:48)
[2016-08-02] MEDS: carBAMazepine 200 MG TABLET PO SCH ×2 (10:48→21:38)
[2016-08-02] MEDS: traZODone HCL 100 MG TABLET (FP) PO SCH (21:38)
[2016-08-02] MEDS: QUEtiapine FUMARATE 100 MG TABLET (FP) PO SCH (21:38)
[2016-08-02] MEDS: THIAMINE HCL 100 MG TABLET (FP) PO SCH (21:38)
[2016-08-03] MEDS: NICOTINE 21 MG/24 HOURS TOPICAL PATCH TD SCH (10:31)
[2016-08-03] MEDS: QUEtiapine FUMARATE 25 MG TABLET (FP) PO SCH (10:32)
[2016-08-03] MEDS: levETIRAcetam 500 MG TABLET (FP) PO SCH ×2 (10:32→21:35)
[2016-08-03] MEDS: RANITIDINE HCL 150 MG TABLET (FP) PO SCH ×2 (10:33→21:36)
[2016-08-03] MEDS: PRENATAL VITAMINS W/ FOLIC ACID TABLET (FP) PO SCH (10:33)
[2016-08-03] MEDS: cloNIDine HCL 0.1 MG TABLET PO SCH ×2 (10:33→21:35)
[2016-08-03] MEDS: carBAMazepine 200 MG TABLET PO SCH ×2 (10:33→21:35)
[2016-08-03] MEDS: hydrOXYzine PAMOATE 50 MG CAPSULE (FP) PO PRN (18:06)
[2016-08-03] MEDS: QUEtiapine FUMARATE 100 MG TABLET (FP) PO SCH (21:35)
[2016-08-03] MEDS: THIAMINE HCL 100 MG TABLET (FP) PO SCH (21:35)
[2016-08-03] MEDS: traZODone HCL 100 MG TABLET (FP) PO SCH (21:35)
[2016-08-03] MEDS: SUVOREXANT 10 MG TABLET PO PRN (21:57)
[2016-08-04] MEDS: RANITIDINE HCL 150 MG TABLET (FP) PO SCH ×2 (10:45→21:38)
[2016-08-04] MEDS: levETIRAcetam 500 MG TABLET (FP) PO SCH ×2 (10:45→21:38)
[2016-08-04] MEDS: NICOTINE 21 MG/24 HOURS TOPICAL PATCH TD SCH (10:45)
[2016-08-04] MEDS: cloNIDine HCL 0.1 MG TABLET PO SCH ×2 (10:45→21:38)
[2016-08-04] MEDS: QUEtiapine FUMARATE 25 MG TABLET (FP) PO SCH (10:45)
[2016-08-04] MEDS: carBAMazepine 200 MG TABLET PO SCH ×2 (10:45→21:38)
[2016-08-04] MEDS: PRENATAL VITAMINS W/ FOLIC ACID TABLET (FP) PO SCH (10:45)
[2016-08-04] MEDS: P-EPHED 60MG/TRIPROLIDI 2.5MG TABLET PO PRN ×2 (11:17→18:57)
[2016-08-04] MEDS: CYCLOBENZAPRINE HCL 10 MG TABLET (FP) PO PRN (18:57)
[2016-08-04] MEDS: THIAMINE HCL 100 MG TABLET (FP) PO SCH (21:38)
[2016-08-04] MEDS: traZODone HCL 100 MG TABLET (FP) PO SCH (21:38)
[2016-08-04] MEDS: QUEtiapine FUMARATE 100 MG TABLET (FP) PO SCH (21:38)
[2016-08-04] MEDS: SUVOREXANT 10 MG TABLET PO PRN (21:40)
[2016-08-05] MEDS: P-EPHED 60MG/TRIPROLIDI 2.5MG TABLET PO PRN ×2 (08:55→19:03)
[2016-08-05] MEDS: levETIRAcetam 500 MG TABLET (FP) PO SCH ×2 (10:41→21:30)
[2016-08-05] MEDS: NICOTINE 21 MG/24 HOURS TOPICAL PATCH TD SCH (10:41)
[2016-08-05] MEDS: PRENATAL VITAMINS W/ FOLIC ACID TABLET (FP) PO SCH (10:42)
[2016-08-05] MEDS: RANITIDINE HCL 150 MG TABLET (FP) PO SCH ×2 (10:42→21:30)
[2016-08-05] MEDS: QUEtiapine FUMARATE 25 MG TABLET (FP) PO SCH (10:42)
[2016-08-05] MEDS: carBAMazepine 200 MG TABLET PO SCH ×2 (10:42→21:30)
[2016-08-05] MEDS: cloNIDine HCL 0.1 MG TABLET PO SCH ×2 (10:42→21:30)
[2016-08-05] MEDS: CYCLOBENZAPRINE HCL 10 MG TABLET (FP) PO PRN (19:03)
[2016-08-05] MEDS: traZODone HCL 100 MG TABLET (FP) PO SCH (21:30)
[2016-08-05] MEDS: QUEtiapine FUMARATE 100 MG TABLET (FP) PO SCH (21:30)
[2016-08-05] MEDS: THIAMINE HCL 100 MG TABLET (FP) PO SCH (21:30)
[2016-08-05] MEDS: SUVOREXANT 10 MG TABLET PO PRN (21:31)
[2016-08-06] MEDS: CYCLOBENZAPRINE HCL 10 MG TABLET (FP) PO PRN (06:44)
[2016-08-06] MEDS: hydrOXYzine PAMOATE 50 MG CAPSULE (FP) PO PRN ×2 (07:23→14:58)
[2016-08-06] MEDS: QUEtiapine FUMARATE 25 MG TABLET (FP) PO SCH (10:06)
[2016-08-06] MEDS: NICOTINE 21 MG/24 HOURS TOPICAL PATCH TD SCH (10:06)
[2016-08-06] MEDS: carBAMazepine 200 MG TABLET PO SCH ×2 (10:07→21:30)
[2016-08-06] MEDS: levETIRAcetam 500 MG TABLET (FP) PO SCH ×2 (10:07→21:29)
[2016-08-06] MEDS: cloNIDine HCL 0.1 MG TABLET PO SCH ×2 (10:07→21:30)
[2016-08-06] MEDS: PRENATAL VITAMINS W/ FOLIC ACID TABLET (FP) PO SCH (10:07)
[2016-08-06] MEDS: RANITIDINE HCL 150 MG TABLET (FP) PO SCH ×2 (10:07→21:30)
[2016-08-06] MEDS: THIAMINE HCL 100 MG TABLET (FP) PO SCH (21:29)
[2016-08-06] MEDS: traZODone HCL 100 MG TABLET (FP) PO SCH (21:30)
[2016-08-06] MEDS: QUEtiapine FUMARATE 100 MG TABLET (FP) PO SCH (21:30)
[2016-08-06] MEDS: SUVOREXANT 10 MG TABLET PO PRN (21:31)
[2016-08-07] MEDS: CYCLOBENZAPRINE HCL 10 MG TABLET (FP) PO PRN ×2 (06:35→16:50)
[2016-08-07] MEDS: hydrOXYzine PAMOATE 50 MG CAPSULE (FP) PO PRN ×2 (06:35→16:48)
[2016-08-07] MEDS: NICOTINE 21 MG/24 HOURS TOPICAL PATCH TD SCH (10:11)
[2016-08-07] MEDS: cloNIDine HCL 0.1 MG TABLET PO SCH ×2 (10:12→21:40)
[2016-08-07] MEDS: QUEtiapine FUMARATE 25 MG TABLET (FP) PO SCH (10:12)
[2016-08-07] MEDS: RANITIDINE HCL 150 MG TABLET (FP) PO SCH ×2 (10:12→21:39)
[2016-08-07] MEDS: levETIRAcetam 500 MG TABLET (FP) PO SCH ×2 (10:12→22:17)
[2016-08-07] MEDS: carBAMazepine 200 MG TABLET PO SCH ×2 (10:12→21:40)
[2016-08-07] MEDS: PRENATAL VITAMINS W/ FOLIC ACID TABLET (FP) PO SCH (10:12)
[2016-08-07] MEDS ORDERED: SUVOREXANT 10 MG TABLET PO PRN (15:54)
[2016-08-07] MEDS: THIAMINE HCL 100 MG TABLET (FP) PO SCH (21:39)
[2016-08-07] MEDS: traZODone HCL 100 MG TABLET (FP) PO SCH (21:40)
[2016-08-07] MEDS: QUEtiapine FUMARATE 100 MG TABLET (FP) PO SCH (21:40)
[2016-08-08] MEDS: PRENATAL VITAMINS W/ FOLIC ACID TABLET (FP) PO SCH (10:09)
[2016-08-08] MEDS: cloNIDine HCL 0.1 MG TABLET PO SCH ×2 (10:10→21:37)
[2016-08-08] MEDS: levETIRAcetam 500 MG TABLET (FP) PO SCH ×2 (10:10→21:37)
[2016-08-08] MEDS: carBAMazepine 200 MG TABLET PO SCH ×2 (10:10→21:37)
[2016-08-08] MEDS: RANITIDINE HCL 150 MG TABLET (FP) PO SCH ×2 (10:10→21:37)
[2016-08-08] MEDS: QUEtiapine FUMARATE 25 MG TABLET (FP) PO SCH (10:10)
[2016-08-08] MEDS: NICOTINE 21 MG/24 HOURS TOPICAL PATCH TD SCH (10:10)
[2016-08-08] MEDS: hydrOXYzine PAMOATE 50 MG CAPSULE (FP) PO PRN (18:56)
[2016-08-08] MEDS: CYCLOBENZAPRINE HCL 10 MG TABLET (FP) PO PRN (18:57)
[2016-08-08] MEDS: traZODone HCL 100 MG TABLET (FP) PO SCH (21:37)
[2016-08-08] MEDS: THIAMINE HCL 100 MG TABLET (FP) PO SCH (21:37)
[2016-08-08] MEDS: QUEtiapine FUMARATE 100 MG TABLET (FP) PO SCH (21:37)
[2016-08-09] MEDS: carBAMazepine 200 MG TABLET PO SCH ×2 (10:41→21:36)
[2016-08-09] MEDS: RANITIDINE HCL 150 MG TABLET (FP) PO SCH ×2 (10:41→21:36)
[2016-08-09] MEDS: cloNIDine HCL 0.1 MG TABLET PO SCH ×2 (10:41→21:36)
[2016-08-09] MEDS: NICOTINE 21 MG/24 HOURS TOPICAL PATCH TD SCH (10:42)
[2016-08-09] MEDS: QUEtiapine FUMARATE 25 MG TABLET (FP) PO SCH (10:42)
[2016-08-09] MEDS: levETIRAcetam 500 MG TABLET (FP) PO SCH ×2 (10:43→21:36)
[2016-08-09] MEDS: PRENATAL VITAMINS W/ FOLIC ACID TABLET (FP) PO SCH (10:43)
[2016-08-09] MEDS: SUVOREXANT 10 MG TABLET PO PRN (21:35)
[2016-08-09] MEDS: QUEtiapine FUMARATE 100 MG TABLET (FP) PO SCH (21:36)
[2016-08-09] MEDS: THIAMINE HCL 100 MG TABLET (FP) PO SCH (21:36)
[2016-08-09] MEDS: traZODone HCL 100 MG TABLET (FP) PO SCH (21:36)
[2016-08-10] MEDS: QUEtiapine FUMARATE 25 MG TABLET (FP) PO SCH (10:25)
[2016-08-10] MEDS: levETIRAcetam 500 MG TABLET (FP) PO SCH ×2 (10:25→21:34)
[2016-08-10] MEDS: cloNIDine HCL 0.1 MG TABLET PO SCH ×2 (10:26→21:34)
[2016-08-10] MEDS: RANITIDINE HCL 150 MG TABLET (FP) PO SCH ×2 (10:26→21:34)
[2016-08-10] MEDS: PRENATAL VITAMINS W/ FOLIC ACID TABLET (FP) PO SCH (10:26)
[2016-08-10] MEDS: NICOTINE 21 MG/24 HOURS TOPICAL PATCH TD SCH (10:26)
[2016-08-10] MEDS: carBAMazepine 200 MG TABLET PO SCH ×2 (10:26→21:34)
[2016-08-10] MEDS ORDERED: PT OWN MED DRAWER 7, Y5N ONE (13:05)
[2016-08-10] MEDS: THIAMINE HCL 100 MG TABLET (FP) PO SCH (21:34)
[2016-08-10] MEDS: QUEtiapine FUMARATE 100 MG TABLET (FP) PO SCH (21:34)
[2016-08-10] MEDS: traZODone HCL 100 MG TABLET (FP) PO SCH (21:34)
[2016-08-10] MEDS: SUVOREXANT 10 MG TABLET PO PRN (21:36)
[2016-08-11] MEDS: hydrOXYzine PAMOATE 50 MG CAPSULE (FP) PO PRN (06:02)
[2016-08-11] MEDS ORDERED: PT OWN MED DRAWER 7, Y5N ONE (08:34)
[2016-08-11] MEDS: PRENATAL VITAMINS W/ FOLIC ACID TABLET (FP) PO SCH (10:23)
[2016-08-11] MEDS: NICOTINE 21 MG/24 HOURS TOPICAL PATCH TD SCH (10:24)
[2016-08-11] MEDS: levETIRAcetam 500 MG TABLET (FP) PO SCH ×2 (10:24→21:32)
[2016-08-11] MEDS: cloNIDine HCL 0.1 MG TABLET PO SCH ×2 (10:24→21:32)
[2016-08-11] MEDS: QUEtiapine FUMARATE 25 MG TABLET (FP) PO SCH (10:25)
[2016-08-11] MEDS: carBAMazepine 200 MG TABLET PO SCH ×2 (10:25→21:32)
[2016-08-11] MEDS: RANITIDINE HCL 150 MG TABLET (FP) PO SCH ×2 (10:25→21:32)
[2016-08-11] MEDS: THIAMINE HCL 100 MG TABLET (FP) PO SCH (21:32)
[2016-08-11] MEDS: traZODone HCL 100 MG TABLET (FP) PO SCH (21:32)
[2016-08-11] MEDS: QUEtiapine FUMARATE 100 MG TABLET (FP) PO SCH (21:32)
[2016-08-11] MEDS: SUVOREXANT 10 MG TABLET PO PRN (21:33)
[2016-08-12] MEDS: NICOTINE 21 MG/24 HOURS TOPICAL PATCH TD SCH (10:26)
[2016-08-12] MEDS: cloNIDine HCL 0.1 MG TABLET PO SCH ×2 (10:26→21:37)
[2016-08-12] MEDS: QUEtiapine FUMARATE 25 MG TABLET (FP) PO SCH (10:26)
[2016-08-12] MEDS: carBAMazepine 200 MG TABLET PO SCH ×2 (10:26→21:38)
[2016-08-12] MEDS: RANITIDINE HCL 150 MG TABLET (FP) PO SCH ×2 (10:26→21:38)
[2016-08-12] MEDS: levETIRAcetam 500 MG TABLET (FP) PO SCH ×2 (10:26→21:37)
[2016-08-12] MEDS: PRENATAL VITAMINS W/ FOLIC ACID TABLET (FP) PO SCH (10:27)
[2016-08-12] MEDS: THIAMINE HCL 100 MG TABLET (FP) PO SCH (21:37)
[2016-08-12] MEDS: traZODone HCL 100 MG TABLET (FP) PO SCH (21:37)
[2016-08-12] MEDS: QUEtiapine FUMARATE 100 MG TABLET (FP) PO SCH (21:38)
[2016-08-12] MEDS: SUVOREXANT 10 MG TABLET PO PRN (21:39)
[2016-08-13] MEDS: hydrOXYzine PAMOATE 50 MG CAPSULE (FP) PO PRN (06:58)
[2016-08-13] MEDS: CYCLOBENZAPRINE HCL 10 MG TABLET (FP) PO PRN (06:59)
[2016-08-13] MEDS: cloNIDine HCL 0.1 MG TABLET PO SCH ×2 (09:50→21:52)
[2016-08-13] MEDS: NICOTINE 21 MG/24 HOURS TOPICAL PATCH TD SCH (09:50)
[2016-08-13] MEDS: QUEtiapine FUMARATE 25 MG TABLET (FP) PO SCH (09:51)
[2016-08-13] MEDS: levETIRAcetam 500 MG TABLET (FP) PO SCH ×2 (09:51→21:52)
[2016-08-13] MEDS: PRENATAL VITAMINS W/ FOLIC ACID TABLET (FP) PO SCH (09:52)
[2016-08-13] MEDS: RANITIDINE HCL 150 MG TABLET (FP) PO SCH ×2 (09:52→21:52)
[2016-08-13] MEDS: carBAMazepine 200 MG TABLET PO SCH ×2 (09:52→21:53)
[2016-08-13] MEDS ORDERED: ONDANSETRON *ODT* 4 MG TABLET SL PRN (19:05)
[2016-08-13] MEDS ORDERED: ONDANSETRON *ODT* 4 MG TABLET SL ONE (19:05)
[2016-08-13] MEDS: TRIMETHOBENZAMIDE HCL 200MG/2ML INJ IM PRN (20:51)
[2016-08-13] MEDS: IBUPROFEN 400 MG TABLET (FP) PO PRN (20:54)
[2016-08-13] MEDS: SUVOREXANT 10 MG TABLET PO PRN (21:51)
[2016-08-13] MEDS: QUEtiapine FUMARATE 100 MG TABLET (FP) PO SCH (21:52)
[2016-08-13] MEDS: traZODone HCL 100 MG TABLET (FP) PO SCH (21:52)
[2016-08-13] MEDS: THIAMINE HCL 100 MG TABLET (FP) PO SCH (21:52)
[2016-08-14] MEDS: levETIRAcetam 500 MG TABLET (FP) PO SCH ×2 (10:03→21:32)
[2016-08-14] MEDS: QUEtiapine FUMARATE 25 MG TABLET (FP) PO SCH (10:03)
[2016-08-14] MEDS: cloNIDine HCL 0.1 MG TABLET PO SCH ×2 (10:04→21:33)
[2016-08-14] MEDS: RANITIDINE HCL 150 MG TABLET (FP) PO SCH ×2 (10:04→21:33)
[2016-08-14] MEDS: NICOTINE 21 MG/24 HOURS TOPICAL PATCH TD SCH (10:04)
[2016-08-14] MEDS: carBAMazepine 200 MG TABLET PO SCH ×2 (10:04→21:33)
[2016-08-14] MEDS: PRENATAL VITAMINS W/ FOLIC ACID TABLET (FP) PO SCH (10:05)
[2016-08-14] MEDS: QUEtiapine FUMARATE 100 MG TABLET (FP) PO SCH (21:32)
[2016-08-14] MEDS: THIAMINE HCL 100 MG TABLET (FP) PO SCH (21:32)
[2016-08-14] MEDS: traZODone HCL 100 MG TABLET (FP) PO SCH (21:32)
[2016-08-14] MEDS: SUVOREXANT 10 MG TABLET PO PRN (21:32)
[2016-08-15] MEDS: hydrOXYzine PAMOATE 50 MG CAPSULE (FP) PO PRN (06:45)
[2016-08-15] MEDS: CYCLOBENZAPRINE HCL 10 MG TABLET (FP) PO PRN (06:45)
[2016-08-15] MEDS: PRENATAL VITAMINS W/ FOLIC ACID TABLET (FP) PO SCH (11:00)
[2016-08-15] MEDS: RANITIDINE HCL 150 MG TABLET (FP) PO SCH ×2 (11:00→21:36)
[2016-08-15] MEDS: cloNIDine HCL 0.1 MG TABLET PO SCH ×2 (11:01→21:36)
[2016-08-15] MEDS: carBAMazepine 200 MG TABLET PO SCH ×2 (11:01→21:36)
[2016-08-15] MEDS: levETIRAcetam 500 MG TABLET (FP) PO SCH ×2 (11:01→21:35)
[2016-08-15] MEDS: QUEtiapine FUMARATE 25 MG TABLET (FP) PO SCH (11:01)
[2016-08-15] MEDS: NICOTINE 21 MG/24 HOURS TOPICAL PATCH TD SCH (11:02)
--- NOTE | 2016-08-15 17:22 | PN ---
Psychiatric Progress Note Vital Signs: Vital Signs Period Temp Pulse Resp BP Sys/Kurtz Pulse Ox Last 24 Hr 98.4 F 89-98 16-18 94-131/62-92 Date of Session: 08/15/16 Chief Complaint:: Rafita very anxious, HPI: Alcohol,Cocaine and Opioid dependence comorbid with PTSD. ROS: Seizure disorder,GERD. Current Medications: Active Medications Generic Name Dose Route Start Last Admin Trade Name Freq PRN Reason Stop Dose Admin Acetaminophen 650 mg 07/29/16 13:50 Tylenol - PO Q4H PRN PAIN Al Hydroxide/Mg Hydroxide 30 ml 07/29/16 13:50 Mylanta Oral Suspension - PO Q6H PRN DYSPEPSIA Amitriptyline HCl 25 mg 08/15/16 22:00 Elavil - PO TID ELIZABETH Carbamazepine 200 mg 07/29/16 22:00 08/15/16 11:01 Tegretol - PO 200 mg BID ELIZABETH Administration Clonidine 0.1 mg 07/29/16 22:00 08/15/16 11:01 Catapres - PO 0.1 mg BID ELIZABETH Administration Cyclobenzaprine HCl 10 mg 07/29/16 16:28 08/15/16 06:45 Flexeril - PO 10 mg TID PRN Administration MUSCLE SPASMS Diphenhydramine HCl 50 mg 07/29/16 13:50 08/02/16 21:39 Benadryl - PO 50 mg HSMR1 PRN Administration INSOMNIA Eucalyptus/Menthol/Phenol/Sorbitol 1 each 07/29/16 13:50 Cepastat Lozenge - MM Q4H PRN SORE THROAT Guaifenesin 10 ml 07/29/16 13:50 Robitussin Dm - PO Q6H PRN COUGH Hydroxyzine Pamoate 50 mg 07/29/16 13:50 08/15/16 06:45 Vistaril - PO 50 mg Q4H PRN Administration AGITATION Ibuprofen 400 mg 07/29/16 13:50 08/13/16 20:54 Motrin - PO 400 mg Q6H PRN Administration SEVERE PAIN Levetiracetam 2,000 mg 07/29/16 22:00 08/15/16 11:01 Keppra - PO 2,000 mg BID ELIZABETH Administration Loperamide HCl 4 mg 07/29/16 13:50 08/13/16 17:42 Imodium - PO 4 mg Q6H PRN Administration DIARRHEA Magnesium Citrate 300 ml 07/29/16 13:50 Citroma - PO Q48H PRN CONSTIPATION Magnesium Hydroxide 30 ml 07/29/16 13:50 Milk Of Magnesia - PO DAILY PRN CONSTIPATION Nicotine 21 mg 07/30/16 10:00 08/15/16 11:02 Nicoderm Patch - TD 21 mg DAILY ELIZABETH Administration Multivit/Folic Acid/Iron 1 tab 07/30/16 10:00 08/15/16 11:00 Vitamins (Sjr) - PO Not Given DAILY ELIZABETH Pseudoephedrine/Triprolidine 1 combo 07/29/16 13:50 08/05/16 19:03 Actifed - PO 1 combo TID PRN Administration NASAL CONGESTION Quetiapine Fumarate 100 mg 08/01/16 22:00 08/14/16 21:32 Seroquel - PO 100 mg HS ELIZABETH Administration Quetiapine Fumarate 75 mg 08/01/16 10:00 08/15/16 11:01 Seroquel - PO 75 mg DAILY ELIZABETH Administration Ranitidine HCl 150 mg 07/29/16 22:00 08/15/16 11:00 Zantac - PO 150 mg BID ELIZABETH Administration Thiamine HCl 100 mg 07/29/16 22:00 08/14/16 21:32 Vitamin B1 - PO 100 mg HS ELIZABETH Administration Trazodone HCl 100 mg 08/01/16 22:00 08/14/16 21:32 Desyrel - PO 100 mg HS ELIZABETH Administration Trimethobenzamide HCl 200 mg 08/13/16 20:33 08/13/16 20:51 Tigan Injection - IM 200 mg Q6H PRN Administration NAUSEA Current Side Effect: No Lab tests ordered: No Lab tests reviewed: Yes Provider note:: Chart was revuewed,patient was evaluated.Current medications has been discussed with the patient.properties of Elavil has been discussed as well including side effects,benfits and dose adjustment.Elavil 25 mg po tid will be started today to reduce anxiety,depression. Supportive therapy provided. Total face to face time:: 30 Mental Status Exam - Mental Status Exam Alert and Oriented to: Time, Place, Person Cognitive Function: Grossly Intact Mood: Euthymic Affect: Mood Congruent Patient Behavior: Appropriate, Cooperative Speech Pattern: Clear Voice Loudness: Normal Thought Process: Goal Oriented Thought Disorder: Not Present Hallucinations: Denies Suicidal Ideation: Denies Homicidal Ideation: Denies Insight/Judgement: Fair Sleep: Difficulty falling asleep Appetite: Good Muscle strength/Tone: Normal Gait/Station: Normal Psychiatric Treatment Plan - Problem List (1) Alcohol dependence Current Visit: Yes (2) Cocaine dependence Current Visit: Yes (3) GERD (gastroesophageal reflux disease) Current Visit: Yes Qualifiers: (4) Nicotine dependence Current Visit: Yes Qualifiers: (5) Opioid dependence with withdrawal Current Visit: Yes (6) PTSD (post-traumatic stress disorder) Current Visit: Yes Comment: Self-report. (7) Seizure Current Visit: Yes Comment: treated with tegretal and keppra last dose 05/2016 last seizure 04/2016 Initial treatment plan: Continue current medications .Start Elavil 25 mg po tid.
[2016-08-15] MEDS: THIAMINE HCL 100 MG TABLET (FP) PO SCH (21:35)
[2016-08-15] MEDS: traZODone HCL 100 MG TABLET (FP) PO SCH (21:36)
[2016-08-15] MEDS: QUEtiapine FUMARATE 100 MG TABLET (FP) PO SCH (21:36)
[2016-08-15] MEDS: AMITRIPTYLINE HCL 25 MG TABLET (FP) PO SCH (21:38)
[2016-08-15] MEDS: IBUPROFEN 400 MG TABLET (FP) PO PRN (21:38)
[2016-08-15] MEDS: SUVOREXANT 10 MG TABLET PO PRN (21:39)
[2016-08-16] MEDS: AMITRIPTYLINE HCL 25 MG TABLET (FP) PO SCH ×3 (06:35→21:03)
[2016-08-16] MEDS: IBUPROFEN 400 MG TABLET (FP) PO PRN ×3 (06:36→21:04)
[2016-08-16] MEDS: TRIMETHOBENZAMIDE HCL 200MG/2ML INJ IM PRN (08:42)
[2016-08-16] MEDS: levETIRAcetam 500 MG TABLET (FP) PO SCH ×2 (09:45→21:04)
[2016-08-16] MEDS: QUEtiapine FUMARATE 25 MG TABLET (FP) PO SCH (09:45)
[2016-08-16] MEDS: cloNIDine HCL 0.1 MG TABLET PO SCH ×2 (09:45→21:04)
[2016-08-16] MEDS: RANITIDINE HCL 150 MG TABLET (FP) PO SCH ×2 (09:45→21:04)
[2016-08-16] MEDS: carBAMazepine 200 MG TABLET PO SCH ×2 (09:45→21:03)
[2016-08-16] MEDS: NICOTINE 21 MG/24 HOURS TOPICAL PATCH TD SCH (09:46)
[2016-08-16] MEDS: PRENATAL VITAMINS W/ FOLIC ACID TABLET (FP) PO SCH (09:46)
[2016-08-16] MEDS: QUEtiapine FUMARATE 100 MG TABLET (FP) PO SCH (21:03)
[2016-08-16] MEDS: traZODone HCL 100 MG TABLET (FP) PO SCH (21:03)
[2016-08-16] MEDS: THIAMINE HCL 100 MG TABLET (FP) PO SCH (21:06)
[2016-08-17] MEDS: AMITRIPTYLINE HCL 25 MG TABLET (FP) PO SCH ×3 (06:02→21:29)
[2016-08-17] MEDS: IBUPROFEN 400 MG TABLET (FP) PO PRN ×3 (06:02→18:00)
[2016-08-17] MEDS: cloNIDine HCL 0.1 MG TABLET PO SCH ×2 (09:57→21:29)
[2016-08-17] MEDS: levETIRAcetam 500 MG TABLET (FP) PO SCH ×2 (09:57→21:29)
[2016-08-17] MEDS: PRENATAL VITAMINS W/ FOLIC ACID TABLET (FP) PO SCH (09:58)
[2016-08-17] MEDS: QUEtiapine FUMARATE 25 MG TABLET (FP) PO SCH (09:58)
[2016-08-17] MEDS: NICOTINE 21 MG/24 HOURS TOPICAL PATCH TD SCH (09:58)
[2016-08-17] MEDS: RANITIDINE HCL 150 MG TABLET (FP) PO SCH ×2 (09:59→21:29)
[2016-08-17] MEDS: carBAMazepine 200 MG TABLET PO SCH ×2 (09:59→21:29)
[2016-08-17] MEDS ORDERED: LIDOCAINE VISCOUS 2% ORAL/TOP 20 ML UNIT-DOSE CUP MM PRN (14:35)
--- NOTE | 2016-08-17 14:47 | PN ---
[facility] Progress Note Note: One of her tooth broke, pt. c/o toothache. Motrin 800mg prn & Viscous lidocaine prn F/U with dentist upon d/c
[2016-08-17] MEDS: QUEtiapine FUMARATE 100 MG TABLET (FP) PO SCH (21:29)
[2016-08-17] MEDS: THIAMINE HCL 100 MG TABLET (FP) PO SCH (21:29)
[2016-08-17] MEDS: traZODone HCL 100 MG TABLET (FP) PO SCH (21:29)
[2016-08-18] MEDS: IBUPROFEN 400 MG TABLET (FP) PO PRN ×3 (02:27→18:49)
[2016-08-18] MEDS: AMITRIPTYLINE HCL 25 MG TABLET (FP) PO SCH ×3 (06:11→21:18)
[2016-08-18] MEDS: cloNIDine HCL 0.1 MG TABLET PO SCH ×2 (10:04→21:18)
[2016-08-18] MEDS: levETIRAcetam 500 MG TABLET (FP) PO SCH ×2 (10:04→21:18)
[2016-08-18] MEDS: PRENATAL VITAMINS W/ FOLIC ACID TABLET (FP) PO SCH (10:04)
[2016-08-18] MEDS: QUEtiapine FUMARATE 25 MG TABLET (FP) PO SCH (10:05)
[2016-08-18] MEDS: NICOTINE 21 MG/24 HOURS TOPICAL PATCH TD SCH (10:05)
[2016-08-18] MEDS: carBAMazepine 200 MG TABLET PO SCH ×2 (10:05→21:18)
[2016-08-18] MEDS: RANITIDINE HCL 150 MG TABLET (FP) PO SCH ×2 (10:06→21:18)
[2016-08-18] MEDS: THIAMINE HCL 100 MG TABLET (FP) PO SCH (21:18)
[2016-08-18] MEDS: traZODone HCL 100 MG TABLET (FP) PO SCH (21:18)
[2016-08-18] MEDS: QUEtiapine FUMARATE 100 MG TABLET (FP) PO SCH (21:18)
[2016-08-19] MEDS: IBUPROFEN 400 MG TABLET (FP) PO PRN ×3 (06:09→19:38)
[2016-08-19] MEDS: AMITRIPTYLINE HCL 25 MG TABLET (FP) PO SCH ×3 (06:09→21:30)
[2016-08-19] MEDS: levETIRAcetam 500 MG TABLET (FP) PO SCH ×2 (10:05→21:30)
[2016-08-19] MEDS: cloNIDine HCL 0.1 MG TABLET PO SCH ×2 (10:05→21:30)
[2016-08-19] MEDS: RANITIDINE HCL 150 MG TABLET (FP) PO SCH ×2 (10:06→21:30)
[2016-08-19] MEDS: NICOTINE 21 MG/24 HOURS TOPICAL PATCH TD SCH (10:06)
[2016-08-19] MEDS: carBAMazepine 200 MG TABLET PO SCH ×2 (10:06→21:30)
[2016-08-19] MEDS: QUEtiapine FUMARATE 25 MG TABLET (FP) PO SCH (10:06)
[2016-08-19] MEDS: PRENATAL VITAMINS W/ FOLIC ACID TABLET (FP) PO SCH (10:07)
[2016-08-19] MEDS: TRIMETHOBENZAMIDE HCL 200MG/2ML INJ IM PRN (19:39)
[2016-08-19] MEDS: traZODone HCL 100 MG TABLET (FP) PO SCH (21:30)
[2016-08-19] MEDS: THIAMINE HCL 100 MG TABLET (FP) PO SCH (21:30)
[2016-08-19] MEDS: QUEtiapine FUMARATE 100 MG TABLET (FP) PO SCH (21:30)
[2016-08-19] MEDS: SUVOREXANT 10 MG TABLET PO PRN (21:32)
[2016-08-20] MEDS: IBUPROFEN 400 MG TABLET (FP) PO PRN (06:46)
[2016-08-20] MEDS: AMITRIPTYLINE HCL 25 MG TABLET (FP) PO SCH ×4 (06:46→21:25)
[2016-08-20] MEDS: cloNIDine HCL 0.1 MG TABLET PO SCH ×2 (10:18→21:25)
[2016-08-20] MEDS: carBAMazepine 200 MG TABLET PO SCH ×2 (10:18→21:25)
[2016-08-20] MEDS: levETIRAcetam 500 MG TABLET (FP) PO SCH ×2 (10:18→21:25)
[2016-08-20] MEDS: QUEtiapine FUMARATE 25 MG TABLET (FP) PO SCH (10:19)
[2016-08-20] MEDS: RANITIDINE HCL 150 MG TABLET (FP) PO SCH ×2 (10:19→21:25)
[2016-08-20] MEDS: PRENATAL VITAMINS W/ FOLIC ACID TABLET (FP) PO SCH (10:20)
[2016-08-20] MEDS: NICOTINE 21 MG/24 HOURS TOPICAL PATCH TD SCH (10:20)
[2016-08-20] MEDS: QUEtiapine FUMARATE 100 MG TABLET (FP) PO SCH (21:25)
[2016-08-20] MEDS: THIAMINE HCL 100 MG TABLET (FP) PO SCH (21:25)
[2016-08-20] MEDS: traZODone HCL 100 MG TABLET (FP) PO SCH (21:25)
[2016-08-20] MEDS: SUVOREXANT 10 MG TABLET PO PRN (21:27)
[2016-08-21] MEDS: AMITRIPTYLINE HCL 25 MG TABLET (FP) PO SCH ×3 (06:38→21:21)
[2016-08-21] MEDS ORDERED: PT OWN MED DRAWER 7, Y5N ONE (08:28)
[2016-08-21] MEDS: levETIRAcetam 500 MG TABLET (FP) PO SCH ×2 (09:58→21:20)
[2016-08-21] MEDS: RANITIDINE HCL 150 MG TABLET (FP) PO SCH ×2 (09:59→21:20)
[2016-08-21] MEDS: cloNIDine HCL 0.1 MG TABLET PO SCH ×2 (09:59→21:20)
[2016-08-21] MEDS: carBAMazepine 200 MG TABLET PO SCH ×2 (09:59→21:20)
[2016-08-21] MEDS: NICOTINE 21 MG/24 HOURS TOPICAL PATCH TD SCH (10:00)
[2016-08-21] MEDS: QUEtiapine FUMARATE 25 MG TABLET (FP) PO SCH (10:00)
[2016-08-21] MEDS: PRENATAL VITAMINS W/ FOLIC ACID TABLET (FP) PO SCH (10:00)
[2016-08-21] MEDS: THIAMINE HCL 100 MG TABLET (FP) PO SCH (21:20)
[2016-08-21] MEDS: traZODone HCL 100 MG TABLET (FP) PO SCH (21:20)
[2016-08-21] MEDS: QUEtiapine FUMARATE 100 MG TABLET (FP) PO SCH (21:23)
[2016-08-22] MEDS: SUVOREXANT 10 MG TABLET PO PRN (00:18)
[2016-08-22] MEDS ORDERED: PT OWN MED DRAWER 7, Y5N ONE (05:42)
[2016-08-22] MEDS: AMITRIPTYLINE HCL 25 MG TABLET (FP) PO SCH ×3 (06:39→21:27)
[2016-08-22] MEDS: IBUPROFEN 400 MG TABLET (FP) PO PRN (07:30)
[2016-08-22] MEDS: RANITIDINE HCL 150 MG TABLET (FP) PO SCH ×2 (10:30→21:28)
[2016-08-22] MEDS: carBAMazepine 200 MG TABLET PO SCH ×2 (10:31→21:27)
[2016-08-22] MEDS: cloNIDine HCL 0.1 MG TABLET PO SCH ×2 (10:31→21:27)
[2016-08-22] MEDS: levETIRAcetam 500 MG TABLET (FP) PO SCH ×2 (10:31→21:27)
[2016-08-22] MEDS: QUEtiapine FUMARATE 25 MG TABLET (FP) PO SCH (10:31)
[2016-08-22] MEDS: NICOTINE 21 MG/24 HOURS TOPICAL PATCH TD SCH (10:32)
[2016-08-22] MEDS: PRENATAL VITAMINS W/ FOLIC ACID TABLET (FP) PO SCH (10:32)
[2016-08-22] MEDS: traZODone HCL 100 MG TABLET (FP) PO SCH (21:27)
[2016-08-22] MEDS: QUEtiapine FUMARATE 100 MG TABLET (FP) PO SCH (21:27)
[2016-08-22] MEDS: THIAMINE HCL 100 MG TABLET (FP) PO SCH (21:27)
[2016-08-23] MEDS: AMITRIPTYLINE HCL 25 MG TABLET (FP) PO SCH ×3 (06:09→21:26)
[2016-08-23] MEDS: IBUPROFEN 400 MG TABLET (FP) PO PRN (07:29)
[2016-08-23] MEDS: carBAMazepine 200 MG TABLET PO SCH ×2 (10:28→21:26)
[2016-08-23] MEDS: RANITIDINE HCL 150 MG TABLET (FP) PO SCH ×2 (10:28→21:26)
[2016-08-23] MEDS: NICOTINE 21 MG/24 HOURS TOPICAL PATCH TD SCH (10:28)
[2016-08-23] MEDS: cloNIDine HCL 0.1 MG TABLET PO SCH ×2 (10:28→21:26)
[2016-08-23] MEDS: PRENATAL VITAMINS W/ FOLIC ACID TABLET (FP) PO SCH (10:28)
[2016-08-23] MEDS: levETIRAcetam 500 MG TABLET (FP) PO SCH ×2 (10:28→21:26)
[2016-08-23] MEDS: QUEtiapine FUMARATE 25 MG TABLET (FP) PO SCH (10:29)
[2016-08-23] MEDS: THIAMINE HCL 100 MG TABLET (FP) PO SCH (21:26)
[2016-08-23] MEDS: traZODone HCL 100 MG TABLET (FP) PO SCH (21:26)
[2016-08-23] MEDS: QUEtiapine FUMARATE 100 MG TABLET (FP) PO SCH (21:26)
[2016-08-23] MEDS: SUVOREXANT 10 MG TABLET PO PRN (21:28)
[2016-08-24] MEDS: AMITRIPTYLINE HCL 25 MG TABLET (FP) PO SCH ×3 (06:08→21:30)
[2016-08-24] MEDS: carBAMazepine 200 MG TABLET PO SCH ×2 (10:23→21:30)
[2016-08-24] MEDS: levETIRAcetam 500 MG TABLET (FP) PO SCH ×2 (10:23→21:30)
[2016-08-24] MEDS: cloNIDine HCL 0.1 MG TABLET PO SCH ×2 (10:23→21:30)
[2016-08-24] MEDS: RANITIDINE HCL 150 MG TABLET (FP) PO SCH ×2 (10:23→21:30)
[2016-08-24] MEDS: QUEtiapine FUMARATE 25 MG TABLET (FP) PO SCH (10:24)
[2016-08-24] MEDS: PRENATAL VITAMINS W/ FOLIC ACID TABLET (FP) PO SCH (10:24)
[2016-08-24] MEDS: NICOTINE 21 MG/24 HOURS TOPICAL PATCH TD SCH (10:24)
[2016-08-24] MEDS: QUEtiapine FUMARATE 100 MG TABLET (FP) PO SCH (21:30)
[2016-08-24] MEDS: THIAMINE HCL 100 MG TABLET (FP) PO SCH (21:30)
[2016-08-24] MEDS: traZODone HCL 100 MG TABLET (FP) PO SCH (21:30)
[2016-08-24] MEDS: SUVOREXANT 10 MG TABLET PO PRN (21:32)
[2016-08-25] MEDS: AMITRIPTYLINE HCL 25 MG TABLET (FP) PO SCH ×3 (06:23→21:21)
[2016-08-25] MEDS: levETIRAcetam 500 MG TABLET (FP) PO SCH ×2 (10:15→21:21)
[2016-08-25] MEDS: QUEtiapine FUMARATE 25 MG TABLET (FP) PO SCH (10:15)
[2016-08-25] MEDS: carBAMazepine 200 MG TABLET PO SCH ×2 (10:15→21:21)
[2016-08-25] MEDS: cloNIDine HCL 0.1 MG TABLET PO SCH ×2 (10:16→21:21)
[2016-08-25] MEDS: RANITIDINE HCL 150 MG TABLET (FP) PO SCH ×2 (10:16→21:21)
[2016-08-25] MEDS: PRENATAL VITAMINS W/ FOLIC ACID TABLET (FP) PO SCH (10:16)
[2016-08-25] MEDS: NICOTINE 21 MG/24 HOURS TOPICAL PATCH TD SCH (10:16)
[2016-08-25] MEDS: IBUPROFEN 400 MG TABLET (FP) PO PRN (16:02)
[2016-08-25] MEDS: QUEtiapine FUMARATE 100 MG TABLET (FP) PO SCH (21:21)
[2016-08-25] MEDS: THIAMINE HCL 100 MG TABLET (FP) PO SCH (21:21)
[2016-08-25] MEDS: traZODone HCL 100 MG TABLET (FP) PO SCH (21:21)
[2016-08-25] MEDS: SUVOREXANT 10 MG TABLET PO PRN (21:23)
[2016-08-26] MEDS: AMITRIPTYLINE HCL 25 MG TABLET (FP) PO SCH (06:30)
[2016-08-26 07:19] VITALS: TEMP 98
[2016-08-26 09:11] VITALS: BP 121/78; PULSE 111
[2016-08-26] MEDS: cloNIDine HCL 0.1 MG TABLET PO SCH (10:04)
[2016-08-26] MEDS: carBAMazepine 200 MG TABLET PO SCH (10:04)
[2016-08-26] MEDS: QUEtiapine FUMARATE 25 MG TABLET (FP) PO SCH (10:04)
[2016-08-26] MEDS: levETIRAcetam 500 MG TABLET (FP) PO SCH (10:04)
[2016-08-26] MEDS: PRENATAL VITAMINS W/ FOLIC ACID TABLET (FP) PO SCH (10:05)
[2016-08-26] MEDS: NICOTINE 21 MG/24 HOURS TOPICAL PATCH TD SCH (10:05)
[2016-08-26] MEDS: RANITIDINE HCL 150 MG TABLET (FP) PO SCH (10:05)
--- NOTE | 2016-08-26 10:16 | PN ---
Psychiatric Progress Note Vital Signs: Vital Signs Period Temp Pulse Resp BP Sys/Kurtz Pulse Ox Last 24 Hr 98.0 F 80-111 16-18 96-121/67-78 Date of Session: 08/26/16 Chief Complaint:: Discharge visit HPI: Patient addressed Alcohol,Opioid,Cocaine dependence comorbid with Substance induced mood disorder,PTSD. ROS: Significant for Seizure disorder,GERD. Current Medications: Active Medications Generic Name Dose Route Start Last Admin Trade Name Freq PRN Reason Stop Dose Admin Acetaminophen 650 mg 07/29/16 13:50 Tylenol - PO Q4H PRN PAIN Al Hydroxide/Mg Hydroxide 30 ml 07/29/16 13:50 Mylanta Oral Suspension - PO Q6H PRN DYSPEPSIA Amitriptyline HCl 25 mg 08/15/16 22:00 08/26/16 06:30 Elavil - PO 25 mg TID ELIZABETH Administration Carbamazepine 200 mg 07/29/16 22:00 08/26/16 10:04 Tegretol - PO 200 mg BID ELIZABETH Administration Clonidine 0.1 mg 07/29/16 22:00 08/26/16 10:04 Catapres - PO 0.1 mg BID ELIZABETH Administration Cyclobenzaprine HCl 10 mg 07/29/16 16:28 08/15/16 06:45 Flexeril - PO 10 mg TID PRN Administration MUSCLE SPASMS Diphenhydramine HCl 50 mg 07/29/16 13:50 08/02/16 21:39 Benadryl - PO 50 mg HSMR1 PRN Administration INSOMNIA Eucalyptus/Menthol/Phenol/Sorbitol 1 each 07/29/16 13:50 Cepastat Lozenge - MM Q4H PRN SORE THROAT Guaifenesin 10 ml 07/29/16 13:50 Robitussin Dm - PO Q6H PRN COUGH Hydroxyzine Pamoate 50 mg 07/29/16 13:50 08/15/16 06:45 Vistaril - PO 50 mg Q4H PRN Administration AGITATION Ibuprofen 800 mg 08/17/16 14:36 08/25/16 16:02 Motrin - PO 800 mg Q6H PRN Administration SEVERE PAIN Levetiracetam 2,000 mg 07/29/16 22:00 08/26/16 10:04 Keppra - PO 2,000 mg BID ELIZABETH Administration Lidocaine HCl 20 ml 08/17/16 14:35 08/17/16 18:02 Xylocaine 2% Viscous Oral - MM 20 ml Q4HPO PRN Administration ORAL PAIN/MOUTH SORES Loperamide HCl 4 mg 07/29/16 13:50 08/13/16 17:42 Imodium - PO 4 mg Q6H PRN Administration DIARRHEA Magnesium Citrate 300 ml 07/29/16 13:50 Citroma - PO Q48H PRN CONSTIPATION Magnesium Hydroxide 30 ml 07/29/16 13:50 Milk Of Magnesia - PO DAILY PRN CONSTIPATION Nicotine 21 mg 07/30/16 10:00 08/26/16 10:05 Nicoderm Patch - TD Not Given DAILY ELIZABETH Multivit/Folic Acid/Iron 1 tab 07/30/16 10:00 08/26/16 10:05 Vitamins (Sjr) - PO Not Given DAILY ELIZABETH Pseudoephedrine/Triprolidine 1 combo 07/29/16 13:50 08/05/16 19:03 Actifed - PO 1 combo TID PRN Administration NASAL CONGESTION Quetiapine Fumarate 100 mg 08/01/16 22:00 08/25/16 21:21 Seroquel - PO 100 mg HS ELIZABETH Administration Quetiapine Fumarate 75 mg 08/01/16 10:00 08/26/16 10:04 Seroquel - PO 75 mg DAILY ELIZABETH Administration Ranitidine HCl 150 mg 07/29/16 22:00 08/26/16 10:05 Zantac - PO 150 mg BID ELIZABETH Administration Thiamine HCl 100 mg 07/29/16 22:00 08/25/16 21:21 Vitamin B1 - PO 100 mg HS ELIZABETH Administration Trazodone HCl 100 mg 08/01/16 22:00 08/25/16 21:21 Desyrel - PO 100 mg HS ELIZABETH Administration Trimethobenzamide HCl 200 mg 08/13/16 20:33 08/19/16 19:39 Tigan Injection - IM 200 mg Q6H PRN Administration NAUSEA Current Side Effect: No Lab tests ordered: No Lab tests reviewed: Yes Provider note:: Patient completed this program today.She hAS MET HER TREATMENT GOALS AND WILL CONTINUE TO ADDRESS HER ISSUES AT [facility] program in [facility].PAtient continues to find that Trazodone 100 mg po hs and seroquel 75 mg po am and 100 mg po hs help to reduce her anxiety and mood instability as well as sleeping difficulties,. Therapy provided focusing on relapse prevention including coping skills,support system utilization. Patient is stable for discharge today. Total face to face time:: 30 Mental Status Exam - Mental Status Exam Alert and Oriented to: Time, Place, Person Cognitive Function: Grossly Intact Patient Appearance: Well Groomed Mood: Euthymic Affect: Mood Congruent Patient Behavior: Cooperative Speech Pattern: Clear Voice Loudness: Normal Thought Process: Goal Oriented Thought Disorder: Not Present Hallucinations: Denies Suicidal Ideation: Denies Homicidal Ideation: Denies Insight/Judgement: Fair Sleep: Fair Appetite: Good Muscle strength/Tone: Normal Gait/Station: Normal Psychiatric Treatment Plan - Problem List (3) GERD (gastroesophageal reflux disease) Qualifiers: (4) Nicotine dependence Qualifiers: (6) PTSD (post-traumatic stress disorder) Comment: Self-report. (7) Seizure Comment: treated with tegretal and keppra last dose 05/2016 last seizure 04/2016
== END 2016-08-26 10:40 | disposition home or self-care (01) | DRG 772 ==
LOC: YASAS 13:04 → Y3E 14:02
PROVIDERS: ADMIT Psychiatry & Neurology Psychiatry; ATTEND Psychiatry & Neurology Psychiatry
PROC: HZ42ZZZ Group Counseling for Substance Abuse Treatment, Cognitive-Behavioral (ICD-10-PCS; principal; 2016-07-29)
DX: F11.20 Opioid dependence, uncomplicated (principal); F10.20 Alcohol dependence, uncomplicated; F14.20 Cocaine dependence, uncomplicated; F17.210 Nicotine dependence, cigarettes, uncomplicated; F43.10 Post-traumatic stress disorder, unspecified; K21.9 Gastro-esophageal reflux disease without esophagitis; G40.909 Epilepsy, unspecified, not intractable, without status epilepticus; G47.00 Insomnia, unspecified; S02.5XXA Fracture of tooth (traumatic), initial encounter for closed fracture; X58.XXXA Exposure to other specified factors, initial encounter; Y92.239 Unspecified place in hospital as the place of occurrence of the external cause
CPT/HCPCS: 36415; 80156; 81003; 81015; 93005; 93010

== ENCOUNTER 2016-12-22 10:47 | Inpatient (IN) | payer OTHER ==
[2016-12-22 13:41] VITALS: BMI 22.6
--- NOTE | 2016-12-22 15:27 | HP ---
COWS - Scale Resting Pulse: 1= [place] 81-100 Sweatin=Flushed/Facial Moisture Restless Observation: 1= Difficult to Sit Still Pupil Size: 2= Moderately Dilated Bone or Joint Aches: 2= Severe Diffuse Aches Runny Nose/ Eye Tearin= Runny Nose/Eyes GI Upset > 30mins: 2= Nausea/Diarrhea Tremor Observation: 2= Slight Tremor Visible Yawning Observation: 0= None Anxiety or Irritability: 2=Irritable/Anxious Goose Flesh Skin: 0=Smooth Skin COWS Score: 16 CIWA Score - CIWA Score Nausea/Vomitin Muscle Tremors: 3 Anxiety: 3 Agitation: 4-Moderately Restless Paroxysmal Sweats: No Perspiration Orientation: 0-Oriented Tacttile Disturbances: 0-None Auditory Disturbances: 0-None Visual Disturbances: 2-Mild Sensitivity Headache: 2-Mild CIWA-Ar Total Score: 17 Admission ROS BHS - HPI Chief Complaint: I need help Allergies/Adverse Reactions: Allergies Allergy/AdvReac Type Severity Reaction Status Date / Time No Known Allergies Allergy Verified 12/22/16 15:23 History of Present Illness: Recently relapsed - Ebola screening Have you traveled outside of the country in the last 21 days: No Have you had contact with anyone from an Ebola affected area: No Have you been sick,other than usual withdrawal symptoms: No Do you have a fever: No - Review of Systems Constitutional: Malaise EENT: reports: Nose Congestion Respiratory: reports: No Symptoms reported Cardiac: reports: No Symptoms Reported GI: reports: No Symptoms Reported : reports: No Symptoms Reported Musculoskeletal: reports: Back Pain Integumentary: reports: No Symptoms Reported Neuro: reports: Headache Endocrine: reports: No Symptoms Reported Hematology: reports: See HPI Psychiatric: reports: Mood/Affect Appropiate, Orientated x3 Patient History - Patient Medical History Hx Anemia: No Hx Asthma: No Hx Chronic Obstructive Pulmonary Disease (COPD): No Hx Cancer: No Hx Cardiac Disorders: No Hx Congestive Heart Failure: No Hx Hypertension: No Hx Hypercholesterolemia: No Hx Pacemaker: No HX Cerebrovascular Accident: No Hx Seizures: Yes (Last episode 07/28/16) Hx Dementia: No Hx Diabetes: No Hx Gastrointestinal Disorders: Yes Hx Liver Disease: No Hx Genitourinary Disorders: No Hx Sexually Transmitted Disorders: No Hx Renal Disease (ESRD): No Hx Thyroid Disease: No Hx Human Immunodeficiency Virus (HIV): No Hx Hepatitis C: No Hx Depression: Yes Hx Suicide Attempt: Yes Hx Bipolar Disorder: No Hx Schizophrenia: No - Patient Surgical History Past Surgical History: Yes Hx Neurologic Surgery: No Hx Cataract Extraction: No Hx Cardiac Surgery: No Hx Lung Surgery: No Hx Breast Surgery: No Hx Breast Biopsy: No Hx Abdominal Surgery: No Hx Appendectomy: No Hx Cholecystectomy: No Hx Genitourinary Surgery: No Hx Section: Yes Hx Orthopedic Surgery: No Anesthesia Reaction: No - PPD History Date: 07/24/16 Results: 0mm - Reproductive History Last Menstrual Period: 07/24/16 - Smoking Cessation Smoking history: Current some day smoker Have you smoked in the past 12 months: No Aproximately how many cigarettes per day: 10 Cigars Per Day: 0 Hx Chewing Tobacco Use: No Initiated information on smoking cessation: Yes 'Breaking Loose' booklet given: 12/22/16 - Substances Abused Heroin Route: Injection Frequency: Daily Amount used: 20 bags Age of first use: 29 Date of Last Use: 12/21/16 Alprazolam (Xanax) Route: Oral Frequency: Daily Amount used: 2-4mg Age of first use: 16 Date of Last Use: 12/21/16 Crack Route: Smoking Frequency: 1-3 times last 30 days Amount used: 1 gram Age of first use: 19 Date of Last Use: 12/20/16 Marijuana/Hashish Route: Smoking Frequency: 3-6 times per week Amount used: 1 joint Age of first use: 14 Date of Last Use: 12/20/16 Family Disease History - Family Disease History Family History: (father heroin) Family Disease History: Diabetes: Grandparent, Heart Disease: Mother Admission Physical Exam S - Vital Signs Vital Signs: Vital Signs - 24 hr 12/22/16 13:37 Temperature 97.3 F L Pulse Rate 83 Respiratory 20 Rate Blood Pressure 112/64 - Physical General Appearance: Yes: Disheveled HEENTM: Yes: EOMI, Normal Voice Respiratory: Yes: Lungs Clear, Normal Breath Sounds Neck: Yes: No masses,lesions,Nodules Breast: Yes: Breast Exam Deferred Cardiology: Yes: Regular Rhythm, Regular Rate, S1, S2 Abdominal: Yes: Within Normal Limits, Normal Bowel Sounds, Non Tender Back: Yes: Within Normal Limits Musculoskeletal: Yes: full range of Motion Extremities: Yes: Within Normal Limits 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 - Detox or Rehab [facility] Level of Care: Medically Managed Detox Regimen/Protocol: Methadone/Valium [facility] Breath Alcohol Content Breath Alcohol Content: 0 Urine Pregancy Test - Result Urine Test Results: Negative- NO Line Present Urine Drug Screen - Results Drug Screen Negative: No Urine Drug Screen Results: THC-Marijuana, JUAN FRANCISCO-Cocaine, OPI-Opiates, MDMA-Ecstasy , BZO-Benzodiazepines, MTD-Methadone
[2016-12-22] MEDS ORDERED: MENTHOL/PHENOL 1 EACH UD MM PRN (15:52)
[2016-12-22] MEDS ORDERED: LOPERAMIDE HCL 2 MG CAPSULE PO PRN (15:52)
[2016-12-22] MEDS ORDERED: IBUPROFEN 400 MG TABLET (FP) PO PRN (15:52)
[2016-12-22] MEDS ORDERED: P-EPHED 60MG/TRIPROLIDI 2.5MG TABLET PO PRN (15:52)
[2016-12-22] MEDS ORDERED: MAGNESIUM HYDROX 2400MG/30ML ORAL SUSPENSION 30 ML CUP PO PRN (15:52)
[2016-12-22] MEDS ORDERED: diphenhydrAMINE HCL 50 MG CAPSULE PO PRN (15:52)
[2016-12-22] MEDS ORDERED: MAG HYDROX/AL HYDROX/SIMETH 30 ML UNIT-DOSE CUP PO PRN (15:52)
[2016-12-22] MEDS ORDERED: guaiFENesin/D-METHORPHAN HB 10 ML UNIT-DOSE CUPS PO PRN (15:52)
[2016-12-22] MEDS ORDERED: MAGNESIUM CITRATE 300 ML BOTTLE PO PRN (15:52)
[2016-12-22] MEDS ORDERED: diazePAM 5 MG TABLET PO ONE (17:15)
[2016-12-22] MEDS ORDERED: METHADONE HCL 10 MG TABLET (FOR DETOX USE ONLY) PO ONE ×2 (17:15→23:00)
[2016-12-22] MEDS: diazePAM 5 MG TABLET PO SCH ×2 (18:31→22:19)
[2016-12-22] MEDS ORDERED: levETIRAcetam 500 MG TABLET (FP) PO SCH (22:00)
[2016-12-22] MEDS: THIAMINE HCL 100 MG TABLET (FP) PO SCH (22:18)
[2016-12-22] MEDS: carBAMazepine 200 MG TABLET PO SCH (22:19)
[2016-12-22] MEDS: levETIRAcetam 500 MG TABLET (FP) PO SCH (22:19)
[2016-12-23 02:02] LABS: URINE APPEARANCE TURBID; URINE BILIRUBIN NEGATIVE (NEGATIVE); URINE BLOOD NEGATIVE (NEGATIVE); URINE COLOR AMBER; URINE GLUCOSE (UA) NEGATIVE (NEGATIVE); URINE KETONE TRACE (NEGATIVE); URINE NITRITE NEGATIVE (NEGATIVE); URINE UROBILINOGEN NEGATIVE mg/dL (0.2-1.0)
[2016-12-23 02:04] LABS: URINE PROTEIN 2+ (NEGATIVE)
[2016-12-23 02:24] LABS: URINE BACTERIA RARE /hpf (NONE SEEN); URINE MUCUS MANY; URINE RBC 1 /hpf (0-3)
[2016-12-23] MEDS: diazePAM 5 MG TABLET PO SCH ×3 (05:15→22:12)
--- NOTE | 2016-12-23 09:28 | EKG ---
Test Reason : Blood Pressure : / mmHG Vent. Rate : 078 BPM Atrial Rate : 078 BPM P-R Int : 150 ms QRS Dur : 086 ms QT Int : 394 ms P-R-T Axes : 062 052 055 degrees QTc Int : 449 ms NORMAL SINUS RHYTHM POSSIBLE LEFT ATRIAL ENLARGEMENT WHEN COMPARED WITH ECG OF 29-JUL-2016 17:37, NO SIGNIFICANT CHANGE WAS FOUND Confirmed by KEISHA ADKINS MD ([id number]) on 12/23/2016 9:28:09 AM Referred By: Nikolay Shah Confirmed By:KEISHA ADKINS MD
[2016-12-23] MEDS ORDERED: FLUCONAZOLE 50 MG TABLET PO ONE (09:33)
--- NOTE | 2016-12-23 09:40 | PN ---
[facility] CIWA - CIWA Score Nausea/Vomitin Muscle Tremors: 3 Anxiety: 3 Agitation: 2 Paroxysmal Sweats: 1-Minimal Palms Moist Orientation: 0-Oriented Tacttile Disturbances: 1-Very Mild Itch/Numbness Auditory Disturbances: 1-Very Mild Visual Disturbances: 0-None Headache: 2-Mild CIWA-Ar Total Score: 16 BHS COWS - Scale Resting Pulse: 0= [place] 80 or Below Sweatin= Chills/Flushing Restless Observation: 3= Extraneous Movement Pupil Size: 1= Pupils >than Normal Bone or Joint Aches: 2= Severe Diffuse Aches Runny Nose/ Eye Tearin= Runny Nose/Eyes GI Upset > 30mins: 2= Nausea/Diarrhea Tremor Observation of Outstretched Hands: 2= Slight Tremor Visible Yawning Observation: 1= 1-2x During Session Anxiety or Irritability: 2=Irritable/Anxious Goose Flesh Skin: 0=Smooth Skin COWS Score: 16 [facility] Progress Note (SOAP) Subjective: alert,irritable,anxious,tremor,pain in the body and back,tremor interrupted sleep,vaginal discharge Objective: 12/23/16 09:38 Vital Signs Temperature 97.7 F 12/23/16 09:27 Pulse Rate 80 12/23/16 09:27 Respiratory Rate 16 12/23/16 09:27 Blood Pressure 112/62 12/23/16 09:27 O2 Sat by Pulse Oximetry (%) ekg nsr Laboratory Last Values Urine Color Angelia 12/22/16 21:40 Urine Appearance Turbid 12/22/16 21:40 Urine pH 5.0 (5.0-8.0) 12/22/16 21:40 Urine Protein 2+ (NEGATIVE) H 12/22/16 21:40 Urine Glucose (UA) Negative (NEGATIVE) 12/22/16 21:40 Urine Ketones Trace (NEGATIVE) H 12/22/16 21:40 Urine Blood Negative (NEGATIVE) 12/22/16 21:40 Urine Nitrite Negative (NEGATIVE) 12/22/16 21:40 Urine Bilirubin Negative (NEGATIVE) 12/22/16 21:40 Urine Urobilinogen Negative mg/dL (0.2-1.0) 12/22/16 21:40 Urine RBC 1 /hpf (0-3) 12/22/16 21:40 Urine WBC None /hpf (3-5) 12/22/16 21:40 Ur Epithelial Cells Moderate /hpf (FEW) 12/22/16 21:40 Urine Bacteria Rare /hpf (NONE SEEN) 12/22/16 21:40 Urine Mucus Many 12/22/16 21:40 labs pending Assessment: 12/23/16 09:40 withdrawal symptom Plan: continue detox,diflucan 150 mgs po once,monistat 7 vagina cream
[2016-12-23 09:42] LABS: URINE LEUK ESTERASE Negative (NEGATIVE)
[2016-12-23 09:47] LABS: MCHC 31.9 g/dl (32.0-36.0); MEAN CELL VOLUME 90.8 fl (80-96); RDW 13.3 % (11.6-15.6); WHITE BLOOD COUNT 5.8 K/mm3 (4.0-10.0)
[2016-12-23 09:53] LABS: ALBUMIN 3.4 g/dl (3.4-5.0); ANION GAP 10 (8-16); CALCIUM 8.9 mg/dL (8.5-10.1); CO2 26 mmol/L (21-32); GLUCOSE,RANDOM 109 mg/dL (74-106)
[2016-12-23 09:58] LABS: ALK PHOS 98 U/L (45-117); BILIRUBIN,TOTAL 0.3 mg/dL (0.2-1.0); CREATININE 0.8 mg/dL (0.55-1.02); SGOT/AST 12 U/L (15-37); SGPT/ALT 12 U/L (12-78); TOT PROT 7.3 g/dl (6.4-8.2)
[2016-12-23] MEDS: carBAMazepine 200 MG TABLET PO SCH ×2 (10:00→22:14)
[2016-12-23] MEDS ORDERED: METHADONE HCL 10 MG TABLET (FOR DETOX USE ONLY) PO SCH (10:00)
[2016-12-23] MEDS: levETIRAcetam 500 MG TABLET (FP) PO SCH ×2 (10:12→22:14)
[2016-12-23] MEDS: PRENATAL VITAMINS W/ FOLIC ACID TABLET (FP) PO SCH (10:12)
[2016-12-23] MEDS: diazePAM 5 MG TABLET PO PRN ×2 (10:12→18:17)
[2016-12-23] MEDS: NICOTINE 14 MG/24 HOURS TOPICAL PATCH TD SCH (10:13)
[2016-12-23 10:55] LABS: HIV 1 & 2 AB NEGATIVE; HIV 1 AGp24 NEGATIVE
[2016-12-23 12:43] LABS: PLATELET COMMENT2 NO CLOTTING DETECTED; PLATELET COUNT 268 K/MM3 (134-434); PLATELET ESTIMATE ADEQUATE (NORMAL)
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
[2016-12-23] MEDS: MICONAZOLE NITRATE 2% VAGINAL CREAM 45 GM TUBE VG SCH (22:11)
[2016-12-23] MEDS: THIAMINE HCL 100 MG TABLET (FP) PO SCH (22:12)
[2016-12-23] MEDS: QUEtiapine FUMARATE 100 MG TABLET (FP) PO SCH (22:12)
[2016-12-23] MEDS: ZOLPIDEM TARTRATE 5 MG TABLET PO PRN (22:12)
[2016-12-24] MEDS: diazePAM 5 MG TABLET PO PRN ×4 (00:35→18:19)
--- NOTE | 2016-12-24 09:39 | PN ---
S CIWA - CIWA Score Nausea/Vomitin Muscle Tremors: 3 Anxiety: 3 Agitation: 2 Paroxysmal Sweats: 1-Minimal Palms Moist Orientation: 0-Oriented Tacttile Disturbances: 1-Very Mild Itch/Numbness Auditory Disturbances: 1-Very Mild Visual Disturbances: 0-None Headache: 2-Mild CIWA-Ar Total Score: 16 BHS COWS - Scale Resting Pulse: 0= [place] 80 or Below Sweatin= Chills/Flushing Restless Observation: 3= Extraneous Movement Pupil Size: 1= Pupils >than Normal Bone or Joint Aches: 2= Severe Diffuse Aches Runny Nose/ Eye Tearin= Runny Nose/Eyes GI Upset > 30mins: 3= Vomiting/Diarrhea Tremor Observation of Outstretched Hands: 2= Slight Tremor Visible Yawning Observation: 1= 1-2x During Session Anxiety or Irritability: 2=Irritable/Anxious Goose Flesh Skin: 0=Smooth Skin COWS Score: 17 S Progress Note (SOAP) Subjective: alert,irritable,anxious,interrupted sleep,pain in the body and back Objective: 12/24/16 09:44 Vital Signs Temperature 96.3 F L 12/24/16 06:09 Pulse Rate 74 12/24/16 06:09 Respiratory Rate 18 12/24/16 06:09 Blood Pressure 101/56 12/24/16 06:09 O2 Sat by Pulse Oximetry (%) Laboratory Last Values WBC 5.8 K/mm3 (4.0-10.0) 12/23/16 07:00 RBC 4.35 M/mm3 (3.60-5.2) 12/23/16 07:00 Hgb 12.6 GM/dL (10.7-15.3) 12/23/16 07:00 Hct 39.5 % (32.4-45.2) 12/23/16 07:00 MCV 90.8 fl (80-96) 12/23/16 07:00 MCH 29.0 pg (25.7-33.7) 12/23/16 07:00 MCHC 31.9 g/dl (32.0-36.0) L 12/23/16 07:00 RDW 13.3 % (11.6-15.6) D 12/23/16 07:00 Plt Count 268 K/MM3 (134-434) D 12/23/16 07:00 MPV 9.0 fl (7.5-11.1) 12/23/16 07:00 Platelet Estimate Adequate (NORMAL) 12/23/16 07:00 Platelet Comment No clumping noted 12/23/16 07:00 Platelet Comment No clotting detected 12/23/16 07:00 Sodium 140 mmol/L (136-145) 12/23/16 07:00 Potassium 3.8 mmol/L (3.5-5.1) 12/23/16 07:00 Chloride 104 mmol/L (98-107) 12/23/16 07:00 Carbon Dioxide 26 mmol/L (21-32) 12/23/16 07:00 Anion Gap 10 (8-16) 12/23/16 07:00 BUN 15 mg/dL (7-18) D 12/23/16 07:00 Creatinine 0.8 mg/dL (0.55-1.02) 12/23/16 07:00 Creat Clearance w eGFR > 60 (>60) 12/23/16 07:00 Random Glucose 109 mg/dL (74-106) H D 12/23/16 07:00 Calcium 8.9 mg/dL (8.5-10.1) 12/23/16 07:00 Total Bilirubin 0.3 mg/dL (0.2-1.0) D 12/23/16 07:00 AST 12 U/L (15-37) L D 12/23/16 07:00 ALT 12 U/L (12-78) D 12/23/16 07:00 Alkaline Phosphatase 98 U/L (45-117) 12/23/16 07:00 Total Protein 7.3 g/dl (6.4-8.2) 12/23/16 07:00 Albumin 3.4 g/dl (3.4-5.0) 12/23/16 07:00 Urine Color Angelia 12/22/16 21:40 Urine Appearance Turbid 12/22/16 21:40 Urine pH 5.0 (5.0-8.0) 12/22/16 21:40 Ur Specific [place] >= 1.030 (1.005-1.025) H 12/22/16 21:40 Urine Protein 2+ (NEGATIVE) H 12/22/16 21:40 Urine Glucose (UA) Negative (NEGATIVE) 12/22/16 21:40 Urine Ketones Trace (NEGATIVE) H 12/22/16 21:40 Urine Blood Negative (NEGATIVE) 12/22/16 21:40 Urine Nitrite Negative (NEGATIVE) 12/22/16 21:40 Urine Bilirubin Negative (NEGATIVE) 12/22/16 21:40 Urine Urobilinogen Negative mg/dL (0.2-1.0) 12/22/16 21:40 Ur Leukocyte Esterase Negative (NEGATIVE) 12/22/16 21:40 Urine RBC 1 /hpf (0-3) 12/22/16 21:40 Urine WBC None /hpf (3-5) 12/22/16 21:40 Ur Epithelial Cells Moderate /hpf (FEW) 12/22/16 21:40 Urine Bacteria Rare /hpf (NONE SEEN) 12/22/16 21:40 Urine Mucus Many 12/22/16 21:40 RPR Titer Nonreactive (NONREACTIVE) 12/23/16 07:00 HIV 1&2 Antibody Screen Negative 12/23/16 07:00 HIV P24 Antigen Negative 12/23/16 07:00 12/24/16 09:51 12/24/16 09:51 Assessment: 12/24/16 09:51 withdrawal symptom Plan: continue detox
[2016-12-24] MEDS: diazePAM 5 MG TABLET PO SCH ×2 (10:08→22:07)
[2016-12-24] MEDS: METHADONE HCL 5 MG TABLET (FOR DETOX USE ONLY) PO SCH (10:08)
[2016-12-24] MEDS: levETIRAcetam 500 MG TABLET (FP) PO SCH ×2 (10:08→22:06)
[2016-12-24] MEDS: PRENATAL VITAMINS W/ FOLIC ACID TABLET (FP) PO SCH (10:08)
[2016-12-24] MEDS: carBAMazepine 200 MG TABLET PO SCH ×2 (10:08→22:06)
[2016-12-24] MEDS: NICOTINE 14 MG/24 HOURS TOPICAL PATCH TD SCH (10:09)
[2016-12-24] MEDS: ACETAMINOPHEN 325 MG TABLET (FP) PO PRN (16:29)
--- NOTE | 2016-12-24 16:34 | PN ---
[facility] Progress Note Note: infected dental cavity right lower molar with gingivitis amoxicillin 500 mgs po tid for 7 days,motrin 600 mgs po q6 hours prn for pain
[2016-12-24] MEDS: QUEtiapine FUMARATE 100 MG TABLET (FP) PO SCH (22:06)
[2016-12-24] MEDS: THIAMINE HCL 100 MG TABLET (FP) PO SCH (22:06)
[2016-12-24] MEDS: ZOLPIDEM TARTRATE 5 MG TABLET PO PRN (22:06)
[2016-12-24] MEDS: MICONAZOLE NITRATE 2% VAGINAL CREAM 45 GM TUBE VG SCH (22:07)
[2016-12-24] MEDS: IBUPROFEN 600 MG TABLET (FP) PO PRN (22:08)
[2016-12-24] MEDS: AMOXICILLIN 500 MG CAPSULE (FP) PO SCH (22:55)
[2016-12-25] MEDS: diazePAM 5 MG TABLET PO PRN ×3 (01:19→12:28)
[2016-12-25] MEDS: IBUPROFEN 600 MG TABLET (FP) PO PRN (06:12)
[2016-12-25] MEDS: AMOXICILLIN 500 MG CAPSULE (FP) PO SCH ×3 (06:20→22:16)
[2016-12-25] MEDS: ACETAMINOPHEN 325 MG TABLET (FP) PO PRN ×2 (09:59→13:27)
[2016-12-25] MEDS: PRENATAL VITAMINS W/ FOLIC ACID TABLET (FP) PO SCH (10:00)
[2016-12-25] MEDS: carBAMazepine 200 MG TABLET PO SCH ×2 (10:00→22:16)
[2016-12-25] MEDS: METHADONE HCL 5 MG TABLET (FOR DETOX USE ONLY) PO SCH (10:00)
[2016-12-25] MEDS: diazePAM 5 MG TABLET PO SCH ×2 (10:00→22:16)
[2016-12-25] MEDS: NICOTINE 14 MG/24 HOURS TOPICAL PATCH TD SCH (10:01)
[2016-12-25] MEDS: levETIRAcetam 500 MG TABLET (FP) PO SCH ×2 (10:01→22:16)
--- NOTE | 2016-12-25 11:07 | PN ---
S Progress Note (SOAP) Subjective: ALERT,IRRITABLE,ANXIOUS,INTERRUPTED SLEEP,LESS TOOTHACHE Objective: 12/25/16 11:06 Vital Signs Temperature 97.3 F L 12/25/16 10:52 Pulse Rate 87 12/25/16 10:52 Respiratory Rate 16 12/25/16 10:52 Blood Pressure 113/52 12/25/16 10:52 O2 Sat by Pulse Oximetry (%) Assessment: 12/25/16 11:06 WITHDRAWAL SYMPTOM Plan: CONTINUE DETOX,
[2016-12-25] MEDS ORDERED: LIDOCAINE VISCOUS 2% ORAL/TOP 20 ML UNIT-DOSE CUP MM PRN (13:22)
[2016-12-25] MEDS: IBUPROFEN 400 MG TABLET (FP) PO PRN ×2 (14:00→21:51)
[2016-12-25] MEDS: CYCLOBENZAPRINE HCL 10 MG TABLET (FP) PO PRN (15:23)
[2016-12-25] MEDS: hydrOXYzine PAMOATE 50 MG CAPSULE (FP) PO PRN (15:23)
[2016-12-25] MEDS: QUEtiapine FUMARATE 100 MG TABLET (FP) PO SCH (22:16)
[2016-12-25] MEDS: ZOLPIDEM TARTRATE 5 MG TABLET PO PRN (22:16)
[2016-12-25] MEDS: THIAMINE HCL 100 MG TABLET (FP) PO SCH (22:16)
[2016-12-25] MEDS: MICONAZOLE NITRATE 2% VAGINAL CREAM 45 GM TUBE VG SCH (22:17)
[2016-12-26] MEDS: AMOXICILLIN 500 MG CAPSULE (FP) PO SCH ×3 (06:51→22:43)
[2016-12-26] MEDS: hydrOXYzine PAMOATE 50 MG CAPSULE (FP) PO PRN (09:16)
[2016-12-26] MEDS: CYCLOBENZAPRINE HCL 10 MG TABLET (FP) PO PRN ×3 (09:16→22:43)
[2016-12-26] MEDS: IBUPROFEN 400 MG TABLET (FP) PO PRN ×2 (09:17→15:31)
[2016-12-26] MEDS ORDERED: METHADONE HCL 10 MG TABLET (FOR DETOX USE ONLY) PO SCH (10:00)
[2016-12-26] MEDS ORDERED: diazePAM 5 MG TABLET PO SCH (10:00)
--- NOTE | 2016-12-26 10:09 | PN ---
S Progress Note (SOAP) Subjective: alert,irritable,interrupted sleep, Objective: 12/26/16 11:09 Vital Signs Temperature 97.3 F L 12/26/16 11:00 Pulse Rate 85 12/26/16 11:00 Respiratory Rate 18 12/26/16 11:00 Blood Pressure 121/89 12/26/16 11:00 O2 Sat by Pulse Oximetry (%) tooth ache is less Assessment: 12/26/16 11:09 withdrawal symptom Plan: continue detox,discharge in am
[2016-12-26] MEDS: carBAMazepine 200 MG TABLET PO SCH ×2 (10:17→22:44)
[2016-12-26] MEDS: levETIRAcetam 500 MG TABLET (FP) PO SCH ×2 (10:17→22:43)
[2016-12-26] MEDS: NICOTINE 14 MG/24 HOURS TOPICAL PATCH TD SCH (10:17)
[2016-12-26] MEDS: PRENATAL VITAMINS W/ FOLIC ACID TABLET (FP) PO SCH (10:17)
[2016-12-26] MEDS ORDERED: TRIMETHOBENZAMIDE HCL 200MG/2ML INJ IM ONE (10:46)
[2016-12-26] MEDS: ZOLPIDEM TARTRATE 5 MG TABLET PO PRN (21:25)
[2016-12-26] MEDS ORDERED: ONDANSETRON *ODT* 4 MG TABLET SL ONE (21:33)
[2016-12-26] MEDS: MICONAZOLE NITRATE 2% VAGINAL CREAM 45 GM TUBE VG SCH (22:42)
[2016-12-26] MEDS: QUEtiapine FUMARATE 100 MG TABLET (FP) PO SCH (22:44)
[2016-12-26] MEDS: THIAMINE HCL 100 MG TABLET (FP) PO SCH (22:44)
[2016-12-27] MEDS ORDERED: METHADONE HCL 5 MG TABLET (FOR DETOX USE ONLY) PO SCH (06:00)
[2016-12-27] MEDS: AMOXICILLIN 500 MG CAPSULE (FP) PO SCH (06:29)
[2016-12-27] MEDS ORDERED: diazePAM 5 MG TABLET PO ONE (08:42)
--- NOTE | 2016-12-27 09:14 | DS ---
[facility] Detox Discharge Summary Admission Date: 12/22/16 Discharge Date: 12/27/16 - History Present History: Alcohol Dependence, Cannabis Dependence, Opioid Dependence, Sedative Dependence - Physical Exam Results Vital Signs: Vital Signs Temperature 97.2 F L 12/27/16 06:56 Pulse Rate 101 H 12/27/16 06:56 Respiratory Rate 18 12/27/16 06:56 Blood Pressure 104/76 12/27/16 06:56 O2 Sat by Pulse Oximetry (%) - Treatment Hospital Course: Detox Protocol Followed, Detoxed Safely, Responded well, Discharged Condition Good, Rehab Referral Accepted - Medication Discharge Medications: Ambulatory Orders Carbamazepine [Tegretol -] 200 mg PO BID #60 tablet 08/25/16 Levetiracetam [Keppra -] 2,000 mg PO BID #120 tablet 08/25/16 Ranitidine HCl [Zantac] 150 mg PO BID #60 tab 08/25/16 Quetiapine Fumarate [Seroquel -] 75 mg PO DAILY #90 tablet 08/26/16 Quetiapine Fumarate [Seroquel] 100 mg PO HS #30 tablet MDD 100 mg 08/26/16 Trazodone HCl [Desyrel -] 100 mg PO HS #30 tablet 08/26/16 Quetiapine Fumarate [Seroquel] 100 mg PO HS #30 tablet 12/25/16 - Diagnosis (1) Benzodiazepine dependence Current Visit: Yes Status: Chronic (2) Cannabis dependence Current Visit: Yes Status: Chronic (3) Cocaine dependence Current Visit: Yes Status: Chronic Qualifiers: Substance use status: uncomplicated Qualified Code(s): F14.20 - Cocaine dependence, uncomplicated; F14.20 - Cocaine dependence, uncomplicated; F14.20 - Cocaine dependence, uncomplicated (4) MDMA abuse Current Visit: Yes Status: Acute (5) Nicotine dependence Current Visit: Yes Status: Chronic Qualifiers: Nicotine product type: cigarettes Substance use status: uncomplicated Qualified Code(s): F17.210 - Nicotine dependence, cigarettes, uncomplicated; F17.210 - Nicotine dependence, cigarettes, uncomplicated (6) Substance induced mood disorder Current Visit: Yes Status: Acute (7) GERD (gastroesophageal reflux disease) Current Visit: Yes Status: Chronic Qualifiers: (8) Insomnia Current Visit: Yes Status: Chronic (9) Benzodiazepine abuse Current Visit: No Status: Acute (10) Drug-induced mood disorder Current Visit: No Status: Acute (11) Alcohol dependence Current Visit: No Status: Chronic (12) Opioid dependence with withdrawal Current Visit: No Status: Chronic (13) PTSD (post-traumatic stress disorder) Current Visit: No Status: Chronic (14) Seizure Current Visit: No Status: Chronic (15) Depression (emotion) Current Visit: No Status: Suspected Qualifiers: Depression Type: dysthymia Qualified Code(s): F34.1 - Dysthymic disorder; F34.1 - Dysthymic disorder; F34.1 - Dysthymic disorder - AMA Did Patient Leave Against Medical Advice: No ([facility])
[2016-12-27] MEDS: levETIRAcetam 500 MG TABLET (FP) PO SCH (10:01)
[2016-12-27] MEDS: carBAMazepine 200 MG TABLET PO SCH (10:01)
[2016-12-27] MEDS: PRENATAL VITAMINS W/ FOLIC ACID TABLET (FP) PO SCH (10:02)
[2016-12-27] MEDS: NICOTINE 14 MG/24 HOURS TOPICAL PATCH TD SCH (10:03)
[2016-12-27 12:45] VITALS: BP 111/73; PULSE 108; TEMP 98.9
== END 2016-12-27 14:15 | disposition home or self-care (01) | DRG 773 ==
LOC: YASAS 10:47 → Y6N 16:49
PROVIDERS: ADMIT Internal Medicine; ATTEND Internal Medicine
PROC: HZ2ZZZZ Detoxification Services for Substance Abuse Treatment (ICD-10-PCS; principal; 2016-12-22)
DX: F11.23 Opioid dependence with withdrawal (principal); F13.20 Sedative, hypnotic or anxiolytic dependence, uncomplicated; F14.20 Cocaine dependence, uncomplicated; F12.20 Cannabis dependence, uncomplicated; F15.10 Other stimulant abuse, uncomplicated; F19.24 Other psychoactive substance dependence with psychoactive substance-induced mood disorder; F34.1 Dysthymic disorder; F43.10 Post-traumatic stress disorder, unspecified; G47.00 Insomnia, unspecified; K21.9 Gastro-esophageal reflux disease without esophagitis; Z86.69 Personal history of other diseases of the nervous system and sense organs
CPT/HCPCS: 36415; 80053; 81003; 81015; 85027; 86593; 87389; 93005; 93010